=== PATIENT | male | born 1995 | race Caucasian/White ===

== ENCOUNTER 2017-03-06 16:56 | Inpatient (IN) | payer MEDICAID ==
[2017-03-06] VITALS (11 sets, daily range): BP systolic 102–112; BP diastolic 61–70; PULSE 105–140; RESP 16; TEMP 98–98.4; O2SAT 95–100
[~2017-03-06] VITALS: Ht 170.2 cm; Wt 68.0 kg
[~2017-03-06 16:56] MED LIST: ATOM60 PO
[2017-03-06] MEDS ORDERED: ceFAZolin 2 GM PREMIX 50 ML ONE (17:11)
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
[2017-03-06] MEDS ORDERED: TETANUS/DIPHTHERIA TOXOID ADULT 0.5 ML VIAL IM ONE (17:15)
[2017-03-06 17:27] LABS: AUTOMATED NEUTROPHIL # 29.8 TH/MM3 (1.8-7.7); BASOPHIL # 0.1 TH/MM3 (0-0.2); BASOPHIL % 0.2 % (0.0-2.0); EOSINOPHIL # 0.1 TH/MM3 (0-0.4); EOSINOPHIL % 0.2 % (0.0-4.0); HEMATOCRIT 36.2 % (39.0-51.0); LYMPH % 15.4 % (9.0-44.0); LYMPHOCYTE # 5.8 TH/MM3 (1.0-4.8); MEAN CELL VOLUME 87.3 FL (80.0-100.0); MEAN CORPUSCULAR HEMOGLOBIN 29.5 PG (27.0-34.0); MEAN CORPUSCULAR HGB CONC 33.8 % (32.0-36.0); MONO % 4.9 % (0.0-8.0); NEUT % 79.3 % (16.0-70.0); PLATELET COUNT 470 TH/MM3 (150-450); RED BLOOD COUNT 4.14 MIL/MM3 (4.50-5.90); RED CELL DISTRIBUTION WIDTH 12.7 % (11.6-17.2); WHITE BLOOD COUNT 37.6 TH/MM3 (4.0-11.0)
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
[2017-03-06 17:30] LABS: INTERNATIONAL NORMALIZED RATIO 1.1 RATIO; PROTHROMBIN TIME - PATIENT 12.4 SEC (9.8-11.6)
[2017-03-06 17:38] LABS: HEMO FLAGS AUTO DIFF
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
[2017-03-06] MEDS ORDERED: IOHEXOL 350 MG/ML 10 ML VIAL (for RAD DIAG) IV ONE (17:43)
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
[2017-03-06] MEDS ORDERED: SODIUM CHLOR 0.9% 1000 ML INJ 1,000 ML IV SCH (17:46)
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
[2017-03-06 17:55] LABS: I-STAT POTASSIUM 3.6 MMOL/L (3.5-4.9); I-STAT SODIUM 140 MMOL/L (138-146)
[2017-03-06] MEDS ORDERED: RESP: ALBUTEROL 2.5 MG/IPRATROPIUM 0.5 MG NEB (PRN) INH (18:00)
[2017-03-06] MEDS ORDERED: POTASSIUM PHOSPHATE MONOBASIC 500 MG TAB PO PRN (18:00)
[2017-03-06] MEDS ORDERED: MISCELLANEOUS NURSING INFORMATION XX SCH ×2 (18:00)
[2017-03-06] MEDS ORDERED: CHLORHEXIDINE GLUCONATE 2 % 1 PACK (2 CLOTHS) TOP PRN ×2 (18:00)
[2017-03-06] MEDS ORDERED: SENNOSIDES 8.6 MG TAB PO PRN (18:00)
[2017-03-06] MEDS ORDERED: SODIUM CHLORIDE 0.9% FLUSH 10 ML FLUSH IV FLUSH PRN ×2 (18:00)
[2017-03-06] MEDS ORDERED: MAGNESIUM OXIDE 400 MG TAB PO PRN (18:00)
[2017-03-06] MEDS ORDERED: POTASSIUM CHLOR 40 MEQ PREMIX 100 ML IV PRN (18:00)
[2017-03-06] MEDS ORDERED: ENALAPRILAT 1.25 MG/ML VIAL IV PRN (18:00)
[2017-03-06] MEDS ORDERED: MAGNESIUM SULFATE INJ 4 GM in SODIUM CHLORIDE 0.9% INJ 92 ML IV PRN (18:00)
[2017-03-06] MEDS ORDERED: POTASSIUM PHOSPHATE MONOBASIC 500 MG TAB PO/TUBE PRN (18:00)
[2017-03-06] MEDS ORDERED: POTASSIUM CHLOR 20 MEQ PREMIX 100 ML IV PRN (18:00)
[2017-03-06] MEDS ORDERED: POTASSIUM CHLORIDE 25 MEQ EFFERVESCENT TAB PO PRN (18:00)
[2017-03-06] MEDS ORDERED: PANTOPRAZOLE SODIUM 40 MG VIAL IVP SCH (18:00)
[2017-03-06] MEDS ORDERED: SODIUM PHOSPHATE INJ 30 MMOL in SODIUM CHLOR 0.9% 250 ML INJ 240 ML IV PRN (18:00)
[2017-03-06] MEDS ORDERED: MAGNESIUM SULFATE INJ 2 GM in SODIUM CHLORIDE 0.9% INJ 96 ML IV PRN (18:00)
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
[2017-03-06 18:10] LABS: BLOOD GAS BASE EXCESS -1.3 mmol/L (-2-2); BLOOD GAS CARBOXYHEMOGLOBIN 0.7 % (0-4); BLOOD GAS HCO3 24 mmol/L (22-26); BLOOD GAS METHEMOGLOBIN 1.2 % (0-2); BLOOD GAS O2 HGB SATURATION 98 % (90-100); BLOOD GAS OXYGEN CONTENT 16.8 Vol % (12.0-20.0); BLOOD GAS PCO2 46 mmHg (38-42); BLOOD GAS PO2 548 mmHg (61-120); BLOOD GAS TOTAL HGB 11.1 G/DL (12.0-16.0); CRITICAL VALUE NO; OXYGEN DEVICE VENTILATOR; TEMP CORR TO 98.6
[2017-03-06 18:11] LABS: DRAW SITE RT RADIAL; FIO2 100 %; NUMBER OF ARTERIAL PUNCTURES 1; STAT NO; ULNAR PULSE PRESENT; VENT SETTINGS PRVC/16/450/IT1.0/+5
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
[2017-03-06 18:31] LABS: BANDS 19 % (0-6); METAMYELOCYTES 1 % (0-1); MYELOCYTES 2 % (0-0); NEUTROPHIL # MANUAL DIFF 27.8 TH/MM3 (1.8-7.7); PLATELET ESTIMATE SMEAR HIGH (NORMAL); POLYS (SEG NEUTROPHILS) 52 % (16-70); WBC DIFF SAMPLE 100
[2017-03-06 18:32] LABS: PLATELET MORPHOLOGY NORMAL (NORMAL); SCAN/DIFF FINAL DIFF MANUAL
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
[2017-03-06 18:54] LABS: BACTERIA, URINE FEW /hpf; BLOOD, URINE MOD (NEG); GLUCOSE,URINE NEG (NEG); HYALINE CAST, URINE 18 /lpf (RARE); KETONE, URINE NEG (NEG); MUCUS URINE FEW /lpf (OCC); NITRITE,URINE NEG (NEG); PH, URINE 6.5 (5.0-8.5); SQUAMOUS EPITHELIAL CELL URINE 2 /hpf (0-5); URINE COLOR YELLOW (YELLW/STRAW)
[2017-03-06 18:55] LABS: COMMENT (UR) CATH-CULTURE IND; CULTURE IF INDICATED CATH CULTURE IND
[2017-03-06 18:58] LABS: AMPHETAMINE, URINE NEG (NEG); BARBITURATES, URINE NEG (NEG); COCAINE, URINE NEG (NEG)
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
[2017-03-06] MEDS: SODIUM CHLORIDE 23.4% INJ 188 MEQ in SODIUM CHLOR 0.9% 1000 ML INJ 1,000 ML IV SCH ×2 (20:00→21:37)
[2017-03-06] MEDS: MULTIVITAMIN INJ 10 ML, THIAMINE INJ 100 MG, FOLIC ACID INJ 1 MG in SODIUM CHLORID 0.9%... IV SCH (20:00)
[2017-03-06] MEDS: ARTIFICIAL TEARS OPTH SOLN 15 ML BTL EACH EYE SCH (20:00)
[2017-03-06] MEDS: CHLORHEXIDINE 0.12% (ORAL KIT) 15 ML CUP MT SCH (20:00)
[2017-03-06] MEDS ORDERED: LIDOCAINE 1%/EPINEPHrine 1:100,000 SOLN 50 ML VIAL ONE ×2 (20:06→20:07)
[2017-03-06] MEDS ORDERED: levETIRAcetam INJ 500 MG in SODIUM CHLORIDE 0.9% INJ 100 ML IV SCH (21:00)
[2017-03-06] MEDS: BACITRACIN TOP OINT 15 GM TUBE TOP SCH (21:00)
[2017-03-06] MEDS: SODIUM CHLORIDE 0.9% FLUSH 10 ML FLUSH IV FLUSH SCH (21:00)
[2017-03-06] MEDS: DOCUSATE SODIUM 100 MG/10 ML UDC G-TUBE SCH (21:00)
[2017-03-06] MEDS ORDERED: DOCUSATE SODIUM 100 MG CAP PO SCH (21:00)
[2017-03-06] MEDS: FAMOTIDINE 20 MG/2 ML VIAL IV PUSH SCH (21:00)
[2017-03-06] MEDS: PROPOFOL 1000 MG/100 ML INJ 100 ML IV SCH (21:07)
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
[2017-03-06] MEDS: RESP: ALBUTEROL 2.5 MG/IPRATROPIUM 0.5 MG NEB (SCH) INH (21:46)
[2017-03-06] MEDS ORDERED: TERBUTALINE INJ 1 MG/ML AMP SQ PRN (22:15)
[2017-03-06] MEDS ORDERED: PHENYLEPHRINE 40 MG/D5W 496 ML ADMIX IV SCH ×2 (22:15)
[2017-03-06] MEDS ORDERED: SODIUM CHLOR 0.9% 1000 ML INJ 1,000 ML IV ONE (22:30)
[2017-03-06 22:46] LABS: AMPHETAMINE, URINE NEG (NEG); BARBITURATES, URINE NEG (NEG); COCAINE, URINE NEG (NEG)
[2017-03-06] MEDS ORDERED: PHENYLEPHRINE INJ 40 MG in SODIUM CHLORID 0.9% 500 ML INJ 496 ML IV SCH (23:15)
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
[2017-03-07] VITALS (20 sets, daily range): BP systolic 98–155; BP diastolic 55–70; PULSE 94–138; RESP 18–20; TEMP 98–101.9; O2SAT 99–100
[2017-03-07 02:02] LABS: BLOOD GAS BASE EXCESS -0.9 mmol/L (-2-2); BLOOD GAS CARBOXYHEMOGLOBIN 0.7 % (0-4); BLOOD GAS HCO3 24 mmol/L (22-26); BLOOD GAS METHEMOGLOBIN 0.9 % (0-2); BLOOD GAS O2 HGB SATURATION 98 % (90-100); BLOOD GAS PCO2 40 mmHg (38-42); BLOOD GAS PO2 146 mmHg (61-120); BLOOD GAS TOTAL HGB 10.8 G/DL (12.0-16.0); CRITICAL VALUE NO; OXYGEN DEVICE VENTILATOR; TEMP CORR TO 98.6
[2017-03-07 02:03] LABS: DRAW SITE RT RADIAL; FIO2 40 %; NUMBER OF ARTERIAL PUNCTURES 1; STAT NO; ULNAR PULSE PRESENT
--- NOTE | 2017-03-07 03:28 | PD.PROCEDR ---
Procedure Note Procedure DX: Severe closed head injury, subarachnoid hemorrhage OP: 1. Insertion Right Radial Arterial line (41033) 2. Insertion Left Subclavian Central Venous Line (24715) Procedure: Sukumar test normal right hand. Right wrist supinated and prepped and draped. Right radial artery cannulated with 22 gauge needle and wire easily advanced. Cannula passed over wire to 3 cm. Good waveform observed. Dressing applied. Left chest prepped and draped. Cervical collar left in place. Left subclavian vein cannulated and wire easily advanced. Catheter passed over wire to 18 cm. Lumens aspirated and flushed. Dressing applied. CXR ordered, will review. Jeff Barriga MD Mar 07, 2017 03:28
[2017-03-07] MEDS ORDERED: 3% SALINE INJ 500 ML IV ONE (03:30)
[2017-03-07] MEDS: RESP: ALBUTEROL 2.5 MG/IPRATROPIUM 0.5 MG NEB (SCH) INH ×5 (03:41→22:15)
[2017-03-07] MEDS: cefTRIAXone INJ 1,000 MG in SODIUM CHLORIDE 0.9% INJ 100 ML IV SCH (03:50)
[2017-03-07] MEDS: PROPRANOLOL HCL 10 MG TAB PO SCH ×3 (03:51→14:00)
[2017-03-07] MEDS: PROPOFOL 1000 MG/100 ML INJ 100 ML IV SCH ×4 (03:51→21:24)
[2017-03-07] MEDS ORDERED: CHLORHEXIDINE GLUCONATE 2 % 1 PACK (2 CLOTHS) TOP SCH (04:00)
[2017-03-07] MEDS: CHLORHEXIDINE GLUCONATE 2 % 1 PACK (2 CLOTHS) TOP SCH (04:00)
--- NOTE | 2017-03-07 04:41 | RADRPT ---
EXAM DATE/TIME: 03/07/2017 03:44 [facility] COMPARISON: CHEST SINGLE AP, March 06, 2017, 16:51. INDICATIONS : Follow up trauma. Short of breath. MEDICAL HISTORY : None. SURGICAL HISTORY : None. ENCOUNTER: Subsequent ACUITY: 2 days PAIN SCORE: Non-responsive. LOCATION: Bilateral chest FINDINGS: The support devices are in place. There is no pneumothorax. There is a new infiltrate in the right pe rihilar area suggestive of atelectasis. Heart size is within normal limits. There are no pleural effu sions. The bony structures are stable. CONCLUSION: 1. No evidence of pneumothorax. 2. New right perihilar infiltrate suggestive of atelectasis. Gomez Ramirez MD on March 07, 2017 at 4:39 Board Certified Radiologist. This report was verified electronically.
[2017-03-07 05:08] LABS: BLOOD GAS BASE EXCESS -1.6 mmol/L (-2-2); BLOOD GAS CARBOXYHEMOGLOBIN 0.7 % (0-4); BLOOD GAS HCO3 22 mmol/L (22-26); BLOOD GAS O2 HGB SATURATION 98 % (90-100); BLOOD GAS OXYGEN CONTENT 13.7 Vol % (12.0-20.0); BLOOD GAS PCO2 33 mmHg (38-42); BLOOD GAS PO2 165 mmHg (61-120); BLOOD GAS TOTAL HGB 9.7 G/DL (12.0-16.0); CRITICAL VALUE NO; OXYGEN DEVICE VENTILATOR; TEMP CORR TO 98.6
[2017-03-07 05:09] LABS: DRAW SITE ART LINE; FIO2 40 %; STAT NO
[2017-03-07 05:41] LABS: HEMATOCRIT 28.3 % (39.0-51.0); MEAN CELL VOLUME 86.2 FL (80.0-100.0); MEAN CORPUSCULAR HEMOGLOBIN 29.9 PG (27.0-34.0); MEAN CORPUSCULAR HGB CONC 34.6 % (32.0-36.0); PLATELET COUNT 371 TH/MM3 (150-450); RED BLOOD COUNT 3.29 MIL/MM3 (4.50-5.90); RED CELL DISTRIBUTION WIDTH 12.5 % (11.6-17.2); REVIEW FLAG FINAL
[2017-03-07] MEDS ORDERED: ACETAMINOPHEN 1000 MG/100 ML VIAL IV ONE (05:45)
[2017-03-07 06:16] LABS: BICARBONATE 23.3 MEQ/L (21.0-32.0); POTASSIUM 4.4 MEQ/L (3.5-5.1)
[2017-03-07 06:30] LABS: CALCIUM-PROTEIN CORRECTED 8.3 MG/DL (8.5-10.1)
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
[2017-03-07] MEDS: ARTIFICIAL TEARS OPTH SOLN 15 ML BTL EACH EYE SCH ×3 (08:28→16:47)
[2017-03-07] MEDS: CHLORHEXIDINE 0.12% (ORAL KIT) 15 ML CUP MT SCH ×2 (08:28→20:00)
[2017-03-07] MEDS: BACITRACIN TOP OINT 15 GM TUBE TOP SCH ×2 (08:29→20:14)
[2017-03-07] MEDS: SODIUM CHLORIDE 0.9% FLUSH 10 ML FLUSH IV FLUSH SCH ×2 (08:29→20:13)
[2017-03-07] MEDS: DOCUSATE SODIUM 100 MG/10 ML UDC G-TUBE SCH ×2 (08:29→20:13)
[2017-03-07] MEDS: LACTULOSE SYRUP 20 GM/30 ML CUP PO SCH (08:29)
[2017-03-07] MEDS: FAMOTIDINE 20 MG/2 ML VIAL IV PUSH SCH ×2 (08:53→20:13)
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
[2017-03-07] MEDS: fentaNYL DRIP 250 ML IV SCH (10:23)
[2017-03-07] MEDS: levETIRAcetam INJ 500 MG in SODIUM CHLORIDE 0.9% INJ 100 ML IV SCH ×2 (10:23→20:13)
[2017-03-07] MEDS ORDERED: IOHEXOL 350 MG/ML 50 ML BTL (for RAD DIAG) IV ONE (11:21)
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
--- NOTE | 2017-03-07 11:46 | RADRPT ---
EXAM DATE/TIME: 03/07/2017 11:05 [facility] COMPARISON: No previous studies available for comparison. INDICATIONS : Follow up traumatic brain injury IV CONTRAST: 70 cc Omnipaque 350 (iohexol) IV RADIATION DOSE: 18.85 CTDIvol (mGy) MEDICAL HISTORY : Non-responsive. SURGICAL HISTORY : Non-responsive. ENCOUNTER: Subsequent ACUITY: 1 day PAIN SCALE: Non-responsive LOCATION: Bilateral cranial TECHNIQUE: Volumetric scanning was performed using a multi-row detector CT scanner. The data was post processed with a variety of visualization algorithms including full volume maximum intensity projection, multi -planar sliding thin slab reformation, curved planar reformation, and surface rendering techniques. Using automated exposure control and adjustment of the mA and/or kV according to patient size, radiat ion dose was kept as low as reasonably achievable to obtain optimal diagnostic quality images. FINDINGS: There is excellent visualization of the major intracranial arteries out to the second-order branch ve ssels. There is no evidence for aneurysm, vessel truncation or stenosis, and no evidence for vascula r malformation. Anatomic variant of the [place]. The right posterior communicating artery is diminutive but patent. 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 CONCLUSION: 1. Anatomic alignment of the [place] as above. Patient is right vertebral dominant. 2. Otherwise, intracranial vessels are patent without aneurysmal disease Reji Og MD on March 07, 2017 at 11:42 Board Certified Radiologist. This report was verified electronically.
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
[2017-03-07] MEDS ORDERED: DEXTROSE 50% IN WATER 50 ML VIAL(D50) IV PUSH PRN (15:45)
[2017-03-07] MEDS ORDERED: GLUCAGON 1 MG/ML VIAL OTHER PRN (15:45)
[2017-03-07] MEDS: INSULIN ASPART SUPPLEMENTAL SCALE SQ SCH ×2 (16:00→21:00)
[2017-03-07] MEDS: MULTIVITAMIN INJ 10 ML, THIAMINE INJ 100 MG, FOLIC ACID INJ 1 MG in SODIUM CHLORID 0.9%... IV SCH (20:13)
[2017-03-08] VITALS (22 sets, daily range): BP systolic 134–164; BP diastolic 50–73; PULSE 93–111; RESP 16–20; TEMP 98.4–99.7; O2SAT 98–100
[2017-03-08] MEDS: PROPOFOL 1000 MG/100 ML INJ 100 ML IV SCH ×4 (02:49→20:15)
[2017-03-08] MEDS: RESP: ALBUTEROL 2.5 MG/IPRATROPIUM 0.5 MG NEB (SCH) INH ×4 (02:56→21:01)
[2017-03-08] MEDS: cefTRIAXone INJ 1,000 MG in SODIUM CHLORIDE 0.9% INJ 100 ML IV SCH (03:25)
[2017-03-08] MEDS: CHLORHEXIDINE GLUCONATE 2 % 1 PACK (2 CLOTHS) TOP SCH (04:00)
--- NOTE | 2017-03-08 04:46 | RADRPT ---
EXAM DATE/TIME: 03/08/2017 03:32 [place] COMPARISON: CHEST SINGLE AP, March 07, 2017, 3:44. INDICATIONS : Shortness of breath. MEDICAL HISTORY : None. SURGICAL HISTORY : None. ENCOUNTER: Subsequent ACUITY: 3 days PAIN SCORE: Non-responsive. LOCATION: Bilateral chest FINDINGS: Mild streaky infiltrate right base with small pleural effusion not significantly changed. Left lung c lear. No pneumothorax. Heart size stable, normal. Endotracheal tube tip is about 4 cm above the pearl. Nasogastric tube courses into the stomach. Ther e is a left subclavian central venous catheter with tip the atriocaval junction. CONCLUSION: No significant change. Reji Navarrete MD on March 08, 2017 at 4:44 Board Certified Radiologist. This report was verified electronically.
[2017-03-08 05:28] LABS: AUTOMATED NEUTROPHIL # 7.7 TH/MM3 (1.8-7.7); BASOPHIL % 0.2 % (0.0-2.0); EOSINOPHIL # 0.1 TH/MM3 (0-0.4); EOSINOPHIL % 0.7 % (0.0-4.0); HEMATOCRIT 21.4 % (39.0-51.0); HEMO FLAGS DIFF FINAL; LYMPH % 14.4 % (9.0-44.0); LYMPHOCYTE # 1.5 TH/MM3 (1.0-4.8); MEAN CELL VOLUME 86.1 FL (80.0-100.0); MEAN CORPUSCULAR HEMOGLOBIN 29.4 PG (27.0-34.0); MEAN CORPUSCULAR HGB CONC 34.2 % (32.0-36.0); MONO % 9.7 % (0.0-8.0); PLATELET COUNT 228 TH/MM3 (150-450); RED BLOOD COUNT 2.49 MIL/MM3 (4.50-5.90); RED CELL DISTRIBUTION WIDTH 12.5 % (11.6-17.2); WHITE BLOOD COUNT 10.3 TH/MM3 (4.0-11.0)
[2017-03-08 05:51] LABS: SODIUM (NA) 147 MEQ/L (136-145)
[2017-03-08] MEDS: INSULIN ASPART SUPPLEMENTAL SCALE SQ SCH ×4 (07:00→21:00)
[2017-03-08 07:10] LABS: ALKALINE PHOSPHATASE 43 U/L (45-117); AST (GOT) 61 U/L (15-39); BLOOD UREA NITROGEN 13 MG/DL (7-18); GLOMERULAR FILTRATION RATE 144 ML/MIN (>89); TOTAL BILIRUBIN ADULT 0.2 MG/DL (0.2-1.0)
[2017-03-08 07:25] LABS: ALT (GPT) 98 U/L (9-52); CHLORIDE 116 MEQ/L (98-107); POTASSIUM 3.8 MEQ/L (3.5-5.1)
[2017-03-08] MEDS: CHLORHEXIDINE 0.12% (ORAL KIT) 15 ML CUP MT SCH ×2 (07:28→20:00)
[2017-03-08] MEDS: SODIUM CHLORIDE 0.9% FLUSH 10 ML FLUSH IV FLUSH SCH ×2 (07:28→21:00)
[2017-03-08] MEDS: BACITRACIN TOP OINT 15 GM TUBE TOP SCH ×2 (07:28→21:00)
[2017-03-08] MEDS: ARTIFICIAL TEARS OPTH SOLN 15 ML BTL EACH EYE SCH ×3 (07:28→17:59)
[2017-03-08 07:44] LABS: ANION GAP 7 MEQ/L (5-15); BICARBONATE 23.7 MEQ/L (21.0-32.0)
[2017-03-08] MEDS: LACTULOSE SYRUP 20 GM/30 ML CUP PO SCH (08:28)
[2017-03-08] MEDS: DOCUSATE SODIUM 100 MG/10 ML UDC G-TUBE SCH ×2 (08:28→20:15)
[2017-03-08] MEDS: FAMOTIDINE 20 MG/2 ML VIAL IV PUSH SCH ×2 (08:29→20:16)
[2017-03-08] MEDS: levETIRAcetam INJ 500 MG in SODIUM CHLORIDE 0.9% INJ 100 ML IV SCH ×2 (08:29→20:15)
[2017-03-08] MEDS ORDERED: SODIUM CHLOR 0.9% 250 ML INJ 250 ML IV ONE (09:30)
--- NOTE | 2017-03-08 10:08 | HHI.PR ---
Neuropsych Emotional Emotional: UnabletoAssess: Emotional, Anxious/Fearful, Depressed/Sad, Hostile/ Resentful, Irritable/Angry/Frustrate, Labile, Constricted/Blunted Behavior Behavior: Unable to Asses: Behavior, Coping/Acceptance, Cooperative w/ Treatment, Motivation, Frustration Tolerance/[place], Impulsive/Agitated, Suicidal/ Homicidal Risk Cognitive Cognitive: Unable to Asses: Cognitive, Attention/Concentration, Confused/ Orientation, Insight/Awareness Progress Notes/Response to Tx Contents of Sessions: Level of Consciousness Time with Patient: 15 minutes Premorbid psychological status Premorbid Cognitive, Emotional and Behavioral Status: Unstable. The patient has an unknown number of years of education and no real work history prior to this injury. The patient has prior psychiatric difficulties, including reportedly bipolar disorder (reported by grandmother to staff but not independently corroborated). Substance abuse history includes polysubstance dependence, in controlled environment. Behavioral Reactions of Patient and Family/Support System: Tenuous. The patient apparently lives with his grandmother. The patients family is experiencing ongoing issues of adjustment given the nature of the injury, and this aspect of recovery will require ongoing monitoring. Emotional/Behavioral Status of Patient and Family/Support System: Unstable. Pertinent issues, if appropriate to this patients clinical care, are described in detail above. Maximizing acute care outcome It is recommended that the patient be monitored for emergent behavioral impulsivity as the medical condition evolves. This patients neuropathological challenges may limit their rehabilitation potential going forward, and these challenges will require specialized therapeutic skills to maximize outcome. Additionally, the patients family is experiencing ongoing issues of adjustment given the traumatic nature of the injury, and they will benefit from ongoing psychological assistance. Anticipated Problems Ongoing areas of concern will include behavioral impulsivity, lack of insight and judgment, which is expected to improve with time and treatment. Treatment Plan This clinician will continue to follow with you throughout the course of this patients acute care treatment, and I will be available to meet with the patient s family/support system to facilitate their understanding and the ongoing care of their family member. The goals of neuropsychological intervention shall be both educational and supportive to the family/support system as is deemed clinically appropriate. [facility] Level: I:No response-total assistance Impression Young man with severe traumatic brain injury superimposed on underlying history of polysubstance dependence. Diagnosis: (1) Major neurocognitive disorder as late effect of traumatic brain injury with behavioral disturbance Status: Acute (2) Polysubstance dependence in controlled environment Status: Acute Progress Note Narrative Ongoing follow-up of patient seen during daily trauma rounds. This is day 3 post injury. The patient remains intubated and sedated. Repeat head CT was significant for extensive intraventricular and parenchymal hemorrhage bilaterally. Trauma team consensus is that he will need a trach and will likely require LTAC placement. On sedation vacations, he moves x 4, but in general he is a GCS of 3, [place]. I will continue to follow. Miguel Madrid PhD Mar 08, 2017 10:08 am
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
[2017-03-08] MEDS: 3% SALINE INJ 500 ML IV SCH (13:22)
[2017-03-08] MEDS: fentaNYL DRIP 250 ML IV SCH (13:22)
[2017-03-08 13:44] LABS: BLOOD GAS BASE EXCESS -0.6 mmol/L (-2-2); BLOOD GAS CARBOXYHEMOGLOBIN 0.9 % (0-4); BLOOD GAS HCO3 23 mmol/L (22-26); BLOOD GAS METHEMOGLOBIN 0.8 % (0-2); BLOOD GAS O2 HGB SATURATION 98 % (90-100); BLOOD GAS OXYGEN CONTENT 12.6 Vol % (12.0-20.0); BLOOD GAS PCO2 32 mmHg (38-42); BLOOD GAS PO2 181 mmHg (61-120); BLOOD GAS TOTAL HGB 8.9 G/DL (12.0-16.0); TEMP CORR TO 98.6
[2017-03-08 13:45] LABS: CRITICAL VALUE NO; OXYGEN DEVICE VENTILATOR
[2017-03-08 13:46] LABS: DRAW SITE ART LINE; FIO2 35 %
[2017-03-08 13:47] LABS: STAT YES
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
[2017-03-08] MEDS: MULTIVITAMIN INJ 10 ML, THIAMINE INJ 100 MG, FOLIC ACID INJ 1 MG in SODIUM CHLORID 0.9%... IV SCH (20:18)
[2017-03-08] MEDS: MAGNESIUM HYDROXIDE SUSP 30 ML CUP PO SCH (21:00)
[2017-03-09] VITALS (20 sets, daily range): BP systolic 129–153; BP diastolic 50–60; PULSE 91–107; RESP 16–22; TEMP 99–101.7; O2SAT 98–100
[2017-03-09] MEDS: PROPOFOL 1000 MG/100 ML INJ 100 ML IV SCH ×5 (03:30→18:25)
[2017-03-09] MEDS: RESP: ALBUTEROL 2.5 MG/IPRATROPIUM 0.5 MG NEB (SCH) INH ×4 (03:52→20:16)
[2017-03-09] MEDS: CHLORHEXIDINE GLUCONATE 2 % 1 PACK (2 CLOTHS) TOP SCH (04:00)
[2017-03-09] MEDS: cefTRIAXone INJ 1,000 MG in SODIUM CHLORIDE 0.9% INJ 100 ML IV SCH (05:04)
[2017-03-09] MEDS: fentaNYL DRIP 250 ML IV SCH ×2 (05:05→13:07)
[2017-03-09 05:27] LABS: BASOPHIL % 0.2 % (0.0-2.0); EOSINOPHIL # 0.3 TH/MM3 (0-0.4); EOSINOPHIL % 2.5 % (0.0-4.0); HEMO FLAGS DIFF FINAL; LYMPHOCYTE # 1.3 TH/MM3 (1.0-4.8); MEAN CORPUSCULAR HEMOGLOBIN 29.2 PG (27.0-34.0); MONO % 6.8 % (0.0-8.0); NEUT % 77.5 % (16.0-70.0); PLATELET COUNT 193 TH/MM3 (150-450); RED BLOOD COUNT 2.44 MIL/MM3 (4.50-5.90); RED CELL DISTRIBUTION WIDTH 13.3 % (11.6-17.2); WHITE BLOOD COUNT 10.3 TH/MM3 (4.0-11.0)
[2017-03-09 05:51] LABS: BICARBONATE 25.7 MEQ/L (21.0-32.0); MAGNESIUM 2.1 MG/DL (1.5-2.5); POTASSIUM 3.6 MEQ/L (3.5-5.1)
--- NOTE | 2017-03-09 06:57 | RADRPT ---
EXAM DATE/TIME: 03/09/2017 05:32 [facility] COMPARISON: CHEST SINGLE AP, March 08, 2017, 3:32. INDICATIONS : Shortness of breath. MEDICAL HISTORY : None. SURGICAL HISTORY : None. ENCOUNTER: Subsequent ACUITY: 4 - 6 days PAIN SCORE: Non-responsive. LOCATION: Bilateral chest FINDINGS: There is mild atelectasis/infiltrate in the right mid lung, unchanged. Left lung remains clear. No la rge effusion. No pneumothorax. Cardiomediastinal silhouette normal. Endotracheal tube tip is at the level of thoracic inlet. Nasogastric tube coiled in the stomach. Left subclavian central venous catheter with tip in the superior vena cava unchanged. CONCLUSION: No change. Mild right midlung consolidation persists. Reji Navarrete MD on March 09, 2017 at 6:55 Board Certified Radiologist. This report was verified electronically.
[2017-03-09] MEDS: INSULIN ASPART SUPPLEMENTAL SCALE SQ SCH ×4 (07:00→21:00)
[2017-03-09] MEDS: SODIUM CHLORIDE 0.9% FLUSH 10 ML FLUSH IV FLUSH SCH ×2 (08:34→21:17)
[2017-03-09] MEDS: ARTIFICIAL TEARS OPTH SOLN 15 ML BTL EACH EYE SCH ×3 (08:34→17:32)
[2017-03-09] MEDS: CHLORHEXIDINE 0.12% (ORAL KIT) 15 ML CUP MT SCH ×2 (08:34→21:07)
[2017-03-09] MEDS: BACITRACIN TOP OINT 15 GM TUBE TOP SCH ×2 (08:35→21:14)
[2017-03-09] MEDS: DOCUSATE SODIUM 100 MG/10 ML UDC G-TUBE SCH ×2 (09:48→21:08)
[2017-03-09] MEDS: FAMOTIDINE 20 MG/2 ML VIAL IV PUSH SCH ×2 (09:48→21:11)
[2017-03-09] MEDS: LACTULOSE SYRUP 20 GM/30 ML CUP PO SCH (09:48)
[2017-03-09] MEDS: levETIRAcetam INJ 500 MG in SODIUM CHLORIDE 0.9% INJ 100 ML IV SCH ×2 (09:49→21:09)
[2017-03-09 11:16] LABS: HEMATOCRIT 21.3 % (39.0-51.0); REVIEW FLAG FINAL
[2017-03-09] MEDS ORDERED: SODIUM CHLOR 0.9% 250 ML INJ 250 ML IV ONE (11:45)
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
[2017-03-09] MEDS: 3% SALINE INJ 500 ML IV SCH (13:07)
[2017-03-09] MEDS: METOCLOPRAMIDE HCL 10 MG/2 ML VIAL IV SCH ×2 (13:36→21:12)
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
[2017-03-09 17:20] LABS: HEMATOCRIT 23.8 % (39.0-51.0); REVIEW FLAG FINAL
[2017-03-09] MEDS: SENNOSIDES 8.6 MG TAB PO SCH (17:31)
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
[2017-03-09] MEDS: MAGNESIUM HYDROXIDE SUSP 30 ML CUP PO SCH (21:17)
[2017-03-09] MEDS: ACETAMINOPHEN 325 MG TAB PO PRN (21:46)
[2017-03-10] VITALS (18 sets, daily range): BP systolic 116–161; BP diastolic 51–68; PULSE 91–115; RESP 22–24; TEMP 99.7–101.3; O2SAT 93–100
[2017-03-10] MEDS: PROPOFOL 1000 MG/100 ML INJ 100 ML IV SCH ×4 (01:18→13:10)
[2017-03-10] MEDS ORDERED: Vancomycin Consult Pharmacy 1 EA OTHER SCH (01:30)
[2017-03-10] MEDS ORDERED: ACETAMINOPHEN 1000 MG/100 ML VIAL IV ONE (01:30)
[2017-03-10] MEDS: CEFEPIME INJ 2,000 MG in SODIUM CHLORIDE 0.9% INJ 100 ML IV SCH ×2 (02:43→15:32)
[2017-03-10] MEDS ORDERED: VANCOMYCIN INJ 1,500 MG in SODIUM CHLORID 0.9% 500 ML INJ 500 ML IV ONE (03:00)
[2017-03-10] MEDS: fentaNYL DRIP 250 ML IV SCH ×2 (03:17→16:52)
[2017-03-10] MEDS: RESP: ALBUTEROL 2.5 MG/IPRATROPIUM 0.5 MG NEB (SCH) INH ×4 (03:59→20:17)
[2017-03-10] MEDS: CHLORHEXIDINE GLUCONATE 2 % 1 PACK (2 CLOTHS) TOP SCH (04:00)
[2017-03-10 04:20] LABS: AUTOMATED NEUTROPHIL # 12.4 TH/MM3 (1.8-7.7); BASOPHIL % 0.3 % (0.0-2.0); EOSINOPHIL # 0.2 TH/MM3 (0-0.4); EOSINOPHIL % 1.3 % (0.0-4.0); HEMATOCRIT 24.1 % (39.0-51.0); HEMO FLAGS DIFF FINAL; LYMPH % 5.4 % (9.0-44.0); LYMPHOCYTE # 0.8 TH/MM3 (1.0-4.8); MEAN CELL VOLUME 81.6 FL (80.0-100.0); MEAN CORPUSCULAR HGB CONC 33.1 % (32.0-36.0); MONO % 4.9 % (0.0-8.0); NEUT % 88.1 % (16.0-70.0); PLATELET COUNT 239 TH/MM3 (150-450); RED BLOOD COUNT 2.96 MIL/MM3 (4.50-5.90); RED CELL DISTRIBUTION WIDTH 18.2 % (11.6-17.2); WHITE BLOOD COUNT 14.1 TH/MM3 (4.0-11.0)
[2017-03-10 04:46] LABS: ALT (GPT) 45 U/L (9-52); ANION GAP 7 MEQ/L (5-15); AST (GOT) 23 U/L (15-39); BICARBONATE 25.3 MEQ/L (21.0-32.0); BLOOD UREA NITROGEN 6 MG/DL (7-18); CHLORIDE 118 MEQ/L (98-107); GLOMERULAR FILTRATION RATE 212 ML/MIN (>89); MAGNESIUM 1.9 MG/DL (1.5-2.5); SODIUM (NA) 150 MEQ/L (136-145)
[2017-03-10 04:50] LABS: TOTAL BILIRUBIN ADULT 0.9 MG/DL (0.2-1.0)
[2017-03-10 04:52] LABS: ALKALINE PHOSPHATASE 46 U/L (45-117)
[2017-03-10] MEDS: cefTRIAXone INJ 1,000 MG in SODIUM CHLORIDE 0.9% INJ 100 ML IV SCH (04:59)
[2017-03-10 05:12] LABS: BLOOD GAS BASE EXCESS -0.5 mmol/L (-2-2); BLOOD GAS CARBOXYHEMOGLOBIN 1.2 % (0-4); BLOOD GAS HCO3 23 mmol/L (22-26); BLOOD GAS METHEMOGLOBIN 0.9 % (0-2); BLOOD GAS O2 HGB SATURATION 93 % (90-100); BLOOD GAS PCO2 36 mmHg (38-42); BLOOD GAS PO2 72 mmHg (61-120); BLOOD GAS TOTAL HGB 8.4 G/DL (12.0-16.0); CRITICAL VALUE NO; OXYGEN DEVICE VENTILATOR; TEMP CORR TO 98.6
[2017-03-10 05:13] LABS: DRAW SITE ALINE; FIO2 35 %; STAT NO; ULNAR PULSE PRESENT; VENT SETTINGS PRVC22/500/0.9/+5
--- NOTE | 2017-03-10 06:41 | RADRPT ---
EXAM DATE/TIME: 03/10/2017 05:30 [place] COMPARISON: No previous studies available for comparison. INDICATIONS : Follow up trauma. Respiratory status. MEDICAL HISTORY : None. SURGICAL HISTORY : Craniotomy. ENCOUNTER: Subsequent ACUITY: 4 - 6 days PAIN SCORE: Non-responsive. LOCATION: Bilateral chest FINDINGS: Right mid lung consolidation slightly worse. There is developing consolidation and probable small ple ural effusion at the left lung base. No pneumothorax seen. Heart size stable, normal. Endotracheal tube tip is approximately 5 cm above the pearl. There is a nasogastric tube coiled in t he stomach. Left subclavian central venous catheter unchanged, tip in the superior vena cava. CONCLUSION: Worsening right midlung consolidation and developing left base consolidation. Reji Navarrete MD on March 10, 2017 at 6:39 Board Certified Radiologist. This report was verified electronically.
[2017-03-10] MEDS: METOCLOPRAMIDE HCL 10 MG/2 ML VIAL IV SCH ×3 (07:00→20:29)
[2017-03-10] MEDS: SENNOSIDES 8.6 MG TAB PO SCH ×2 (07:00→16:53)
[2017-03-10] MEDS: INSULIN ASPART SUPPLEMENTAL SCALE SQ SCH ×4 (07:00→21:00)
[2017-03-10] MEDS ORDERED: BISACODYL 10 MG SUPP RECTAL ONE (07:15)
[2017-03-10] MEDS: LACTULOSE SYRUP 20 GM/30 ML CUP PO SCH (09:56)
[2017-03-10] MEDS: FAMOTIDINE 20 MG/2 ML VIAL IV PUSH SCH ×2 (09:56→20:29)
[2017-03-10] MEDS: DOCUSATE SODIUM 100 MG/10 ML UDC G-TUBE SCH ×2 (09:56→20:29)
[2017-03-10] MEDS: ARTIFICIAL TEARS OPTH SOLN 15 ML BTL EACH EYE SCH ×3 (09:57→16:54)
[2017-03-10] MEDS: SODIUM CHLORIDE 0.9% FLUSH 10 ML FLUSH IV FLUSH SCH ×2 (09:57→20:29)
[2017-03-10] MEDS: CHLORHEXIDINE 0.12% (ORAL KIT) 15 ML CUP MT SCH ×2 (09:57→20:00)
[2017-03-10] MEDS: levETIRAcetam INJ 500 MG in SODIUM CHLORIDE 0.9% INJ 100 ML IV SCH ×2 (09:58→20:29)
[2017-03-10] MEDS: BACITRACIN TOP OINT 15 GM TUBE TOP SCH ×2 (09:58→20:29)
[2017-03-10] MEDS: ACETAMINOPHEN 325 MG TAB PO PRN ×2 (10:47→16:53)
[2017-03-10] MEDS: METOPROLOL TARTRATE 5 MG/5 ML VIAL IV PUSH SCH ×3 (11:57→23:00)
[2017-03-10] MEDS: VANCOMYCIN INJ 1,250 MG in SODIUM CHLOR 0.9% 250 ML INJ 250 ML IV SCH ×2 (13:10→20:29)
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
[2017-03-10] MEDS: LEVOFLOXACIN 500 MG PREMIX INJ 100 ML IV SCH (16:52)
[2017-03-10] MEDS: 3% SALINE INJ 500 ML IV SCH (16:54)
[2017-03-10] MEDS ORDERED: ATROPINE SULFATE 1 MG/10 ML SYRINGE ONE (20:20)
[2017-03-10] MEDS: MAGNESIUM HYDROXIDE SUSP 30 ML CUP PO SCH (20:29)
[2017-03-10] MEDS: ENALAPRILAT 1.25 MG/ML VIAL IV PRN (22:08)
[2017-03-11] VITALS (19 sets, daily range): BP systolic 133–177; BP diastolic 59–81; PULSE 85–110; RESP 20–24; TEMP 99.4–101.7; O2SAT 98–100
[2017-03-11] MEDS: PROPOFOL 1000 MG/100 ML INJ 100 ML IV SCH ×3 (01:43→19:01)
[2017-03-11] MEDS: CEFEPIME INJ 2,000 MG in SODIUM CHLORIDE 0.9% INJ 100 ML IV SCH ×2 (01:43→12:51)
[2017-03-11] MEDS: CHLORHEXIDINE GLUCONATE 2 % 1 PACK (2 CLOTHS) TOP SCH (03:45)
[2017-03-11 04:08] LABS: BASOPHIL % 0.2 % (0.0-2.0); EOSINOPHIL # 0.2 TH/MM3 (0-0.4); EOSINOPHIL % 0.7 % (0.0-4.0); HEMATOCRIT 25.3 % (39.0-51.0); HEMO FLAGS DIFF FINAL; LYMPH % 5.9 % (9.0-44.0); LYMPHOCYTE # 1.2 TH/MM3 (1.0-4.8); MEAN CELL VOLUME 82.3 FL (80.0-100.0); MEAN CORPUSCULAR HEMOGLOBIN 26.9 PG (27.0-34.0); MEAN CORPUSCULAR HGB CONC 32.6 % (32.0-36.0); MONO % 5.8 % (0.0-8.0); NEUT % 87.4 % (16.0-70.0); PLATELET COUNT 288 TH/MM3 (150-450); RED BLOOD COUNT 3.07 MIL/MM3 (4.50-5.90); RED CELL DISTRIBUTION WIDTH 17.4 % (11.6-17.2); WHITE BLOOD COUNT 20.6 TH/MM3 (4.0-11.0)
[2017-03-11] MEDS: VANCOMYCIN INJ 1,250 MG in SODIUM CHLOR 0.9% 250 ML INJ 250 ML IV SCH ×2 (04:10→11:36)
--- NOTE | 2017-03-11 04:17 | RADRPT ---
EXAM DATE/TIME: 03/11/2017 02:39 [facility] COMPARISON: CHEST SINGLE AP, March 10, 2017, 5:30. INDICATIONS : Shortness of breath, possible pulmonary disease. MEDICAL HISTORY : None. SURGICAL HISTORY : Craniotomy. ENCOUNTER: Subsequent ACUITY: 4 - 6 days PAIN SCORE: Non-responsive. LOCATION: Bilateral chest FINDINGS: The cardiac silhouette is normal in transverse diameter. There is improving left lower lobe atelectas is. The right lung is free of acute parenchymal opacity. No pleural effusions are identified. Support lines and tubes are in satisfactory position. CONCLUSION: 1. Resolving left basilar atelectasis versus pneumonia Cruz Santos MD on March 11, 2017 at 4:15 Board Certified Radiologist. This report was verified electronically.
[2017-03-11 04:25] LABS: ANION GAP 7 MEQ/L (5-15); AST (GOT) 23 U/L (15-39); BICARBONATE 25.2 MEQ/L (21.0-32.0); BLOOD UREA NITROGEN 8 MG/DL (7-18); CHLORIDE 114 MEQ/L (98-107); GLOMERULAR FILTRATION RATE 246 ML/MIN (>89); MAGNESIUM 2.1 MG/DL (1.5-2.5); POTASSIUM 3.5 MEQ/L (3.5-5.1); SODIUM (NA) 146 MEQ/L (136-145)
[2017-03-11 04:39] LABS: ALKALINE PHOSPHATASE 55 U/L (45-117); ALT (GPT) 39 U/L (9-52); TOTAL BILIRUBIN ADULT 0.8 MG/DL (0.2-1.0)
[2017-03-11] MEDS ORDERED: PHARMACY ORDERED LAB ONE (04:45)
[2017-03-11] MEDS: POTASSIUM CHLOR 40 MEQ PREMIX 100 ML IV PRN (04:55)
[2017-03-11] MEDS: SENNOSIDES 8.6 MG TAB PO SCH ×2 (04:55→16:21)
[2017-03-11] MEDS: METOCLOPRAMIDE HCL 10 MG/2 ML VIAL IV SCH ×3 (04:56→20:52)
[2017-03-11] MEDS: INSULIN ASPART SUPPLEMENTAL SCALE SQ SCH ×4 (04:56→21:00)
[2017-03-11 05:26] LABS: BLOOD GAS BASE EXCESS -0.6 mmol/L (-2-2); BLOOD GAS CARBOXYHEMOGLOBIN 1.2 % (0-4); BLOOD GAS HCO3 22 mmol/L (22-26); BLOOD GAS O2 HGB SATURATION 97 % (90-100); BLOOD GAS OXYGEN CONTENT 12.6 Vol % (12.0-20.0); BLOOD GAS PCO2 30 mmHg (38-42); BLOOD GAS PO2 171 mmHg (61-120); BLOOD GAS TOTAL HGB 8.9 G/DL (12.0-16.0); CRITICAL VALUE NO; OXYGEN DEVICE VENTILATOR; TEMP CORR TO 98.6
[2017-03-11 05:27] LABS: DRAW SITE ART LINE; FIO2 45 %; STAT NO; VENT SETTINGS PRVC/AC
[2017-03-11] MEDS: METOPROLOL TARTRATE 5 MG/5 ML VIAL IV PUSH SCH ×3 (06:36→16:21)
[2017-03-11] MEDS: ARTIFICIAL TEARS OPTH SOLN 15 ML BTL EACH EYE SCH ×3 (08:07→16:20)
[2017-03-11] MEDS: CHLORHEXIDINE 0.12% (ORAL KIT) 15 ML CUP MT SCH ×2 (08:08→20:50)
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
[2017-03-11] MEDS: DOCUSATE SODIUM 100 MG/10 ML UDC G-TUBE SCH ×2 (08:22→20:51)
[2017-03-11] MEDS: SODIUM CHLORIDE 0.9% FLUSH 10 ML FLUSH IV FLUSH SCH ×2 (08:22→20:52)
[2017-03-11] MEDS: FLUCONAZOLE 400 MG PREMIX BAG 200 ML IV SCH (08:25)
[2017-03-11] MEDS: LACTULOSE SYRUP 20 GM/30 ML CUP PO SCH (08:25)
[2017-03-11] MEDS: FAMOTIDINE 20 MG/2 ML VIAL IV PUSH SCH ×2 (08:26→20:52)
[2017-03-11] MEDS: levETIRAcetam INJ 500 MG in SODIUM CHLORIDE 0.9% INJ 100 ML IV SCH ×2 (08:26→20:51)
[2017-03-11] MEDS: BACITRACIN TOP OINT 15 GM TUBE TOP SCH ×2 (08:26→20:53)
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
[2017-03-11 11:56] LABS: BLOOD GAS BASE EXCESS 0.5 mmol/L (-2-2); BLOOD GAS CARBOXYHEMOGLOBIN 1.3 % (0-4); BLOOD GAS HCO3 24 mmol/L (22-26); BLOOD GAS METHEMOGLOBIN 0.8 % (0-2); BLOOD GAS O2 HGB SATURATION 97 % (90-100); BLOOD GAS PCO2 37 mmHg (38-42); BLOOD GAS PO2 170 mmHg (61-120); BLOOD GAS TOTAL HGB 8.5 G/DL (12.0-16.0); CRITICAL VALUE NO; OXYGEN DEVICE VENTILATOR; TEMP CORR TO 98.6
[2017-03-11 11:57] LABS: DRAW SITE ART LINE; FIO2 40 %; STAT NO
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
[2017-03-11] MEDS: ENALAPRILAT 1.25 MG/ML VIAL IV PRN (12:53)
[2017-03-11] MEDS: ACETAMINOPHEN 325 MG TAB PO PRN (14:06)
[2017-03-11] MEDS: LEVOFLOXACIN 500 MG PREMIX INJ 100 ML IV SCH (15:49)
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
[2017-03-11] MEDS ORDERED: LIDOCAINE 1%/EPINEPHrine 1:100,000 SOLN 50 ML VIAL ONE (16:07)
--- NOTE | 2017-03-11 17:21 | PD.OP ---
[id number] Operative Report Date of Surgery: March 11, 2017 Preoperative Diagnosis: Cervical C2 type I and type II displaced odontoid fracture; thoracic T3, T4 and T5 vertebral body fractures Postoperative Diagnosis: Same Procedure: Closed reduction with manipulation of the C2 odontoid fracture; closed treatment of thoracic vertebral body fracture; HALO placement Anesthesia: Local with sedation Surgeon: Balaji Dumont M.D. Scaffolding Helper(s): None Operation and Findings: Informed consent was obtained from the patient's grandmother and sister witnessed by the nurses. Procedure undertaken at the bedside in the surgical intensive care unit with oxygen saturation and hemodynamic monitoring. Patient was already intubated on ventilator support and propofol and fentanyl drips. Neck was maintained in a [place] J collar during the placement of the halo. A bifrontal and occipital regions were then shaved and prepped with Betadine solution and infiltrated with 1% lidocaine with epinephrine solution avoiding the laceration sites. The halo ring was in place with 2 frontal and occipital pins tightened to 8 pounds of torque pressure. The cervical spine gentle manipulation undertaken to try to restore the C2 dens fracture relative the body with x-ray confirmation. The halo vest was then also placed in the ring connectors of the vest with rods and locked in place at 30 pounds of pressure at each connection maintaining a neutral neck position. A final lateral cervical spine x-ray was obtained which confirmed good cervical spinal alignment. Patient tolerated the procedure well without any complications or blood loss. Balaji Dumont MD March 11, 2017 17:21
--- NOTE | 2017-03-11 17:36 | RADRPT ---
EXAM DATE/TIME: 03/11/2017 16:55 [facility] COMPARISON: CT CERVICAL SPINE W/O CONTRAST, March 06, 2017, 17:23. INDICATIONS : Post halo placement. MEDICAL HISTORY : None. SURGICAL HISTORY : None. ENCOUNTER: Subsequent ACUITY: 4 - 6 days PAIN SCORE: Non-responsive. LOCATION: Bilateral neck. FINDINGS: A single lateral view of the cervical spine was performed. The patient is a halo apparatus. The cervi carin spine alignment is satisfactory. The alignment of the dens is appropriate. Endotracheal tube and nasogastric tube are present. CONCLUSION: Satisfactory cervical spine appearance Reji Santizo MD on March 11, 2017 at 17:33 Board Certified Radiologist. This report was verified electronically.
[2017-03-11] MEDS: fentaNYL DRIP 250 ML IV SCH (19:55)
[2017-03-11] MEDS: MAGNESIUM HYDROXIDE SUSP 30 ML CUP PO SCH (20:51)
--- NOTE | 2017-03-11 20:53 | RADRPT ---
EXAM DATE/TIME: 03/11/2017 20:26 [facility] COMPARISON: CHEST SINGLE AP, March 11, 2017, 2:39. INDICATIONS : Respiratory disease. MEDICAL HISTORY : None. SURGICAL HISTORY : None. ENCOUNTER: Subsequent ACUITY: 1 week PAIN SCORE: Non-responsive. LOCATION: Bilateral chest FINDINGS: Bilateral perihilar infiltrates are present, worsening on the right and new on the left. Small, bilat eral pleural effusions are suspected. No pneumothorax seen. Halo now present. Endotracheal tube tip is approximately 5 cm above the pearl. There is a nasogastric tube coiled in t he stomach. There is a left subclavian central venous catheter with tip in the superior vena cava. CONCLUSION: Bilateral perihilar infiltrates, worse on the right and developing on the left. Halo placement. No si gnificant change lines and tubes. Reji Navarrete MD on March 11, 2017 at 20:48 Board Certified Radiologist. This report was verified electronically.
[2017-03-11] MEDS: VANCOMYCIN 1,500 MG/NS 500 ML IV SCH ×2 (22:07)
[2017-03-12] VITALS (16 sets, daily range): BP systolic 126–150; BP diastolic 77–86; PULSE 79–109; RESP 13–22; TEMP 99.1–101.8; O2SAT 97–100
[2017-03-12] MEDS ORDERED: ACETAMINOPHEN 1000 MG/100 ML VIAL IV ONE (01:00)
[2017-03-12] MEDS: CEFEPIME INJ 2,000 MG in SODIUM CHLORIDE 0.9% INJ 100 ML IV SCH ×2 (01:52→14:13)
[2017-03-12] MEDS: PROPOFOL 1000 MG/100 ML INJ 100 ML IV SCH (01:57)
[2017-03-12] MEDS: METOPROLOL TARTRATE 5 MG/5 ML VIAL IV PUSH SCH ×6 (01:58→17:32)
[2017-03-12] MEDS: CHLORHEXIDINE GLUCONATE 2 % 1 PACK (2 CLOTHS) TOP SCH (04:00)
[2017-03-12 04:26] LABS: AUTOMATED NEUTROPHIL # 14.7 TH/MM3 (1.8-7.7); BASOPHIL % 0.1 % (0.0-2.0); EOSINOPHIL # 0.1 TH/MM3 (0-0.4); EOSINOPHIL % 0.8 % (0.0-4.0); HEMATOCRIT 23.2 % (39.0-51.0); HEMO FLAGS DIFF FINAL; LYMPH % 9.9 % (9.0-44.0); LYMPHOCYTE # 1.8 TH/MM3 (1.0-4.8); MEAN CELL VOLUME 81.9 FL (80.0-100.0); MEAN CORPUSCULAR HEMOGLOBIN 27.6 PG (27.0-34.0); MEAN CORPUSCULAR HGB CONC 33.8 % (32.0-36.0); MONO % 7.1 % (0.0-8.0); NEUT % 82.1 % (16.0-70.0); PLATELET COUNT 358 TH/MM3 (150-450); RED BLOOD COUNT 2.83 MIL/MM3 (4.50-5.90); RED CELL DISTRIBUTION WIDTH 17.2 % (11.6-17.2)
[2017-03-12] MEDS: VANCOMYCIN 1,500 MG/NS 500 ML IV SCH ×4 (04:46→11:39)
[2017-03-12] MEDS: METOCLOPRAMIDE HCL 10 MG/2 ML VIAL IV SCH ×3 (04:46→21:08)
[2017-03-12] MEDS: SENNOSIDES 8.6 MG TAB PO SCH ×2 (04:47→17:31)
[2017-03-12 04:55] LABS: ALT (GPT) 33 U/L (9-52); ANION GAP 9 MEQ/L (5-15); AST (GOT) 26 U/L (15-39); BLOOD UREA NITROGEN 9 MG/DL (7-18); CHLORIDE 108 MEQ/L (98-107); GLOMERULAR FILTRATION RATE 267 ML/MIN (>89); MAGNESIUM 2.2 MG/DL (1.5-2.5); POTASSIUM 3.5 MEQ/L (3.5-5.1); SODIUM (NA) 141 MEQ/L (136-145)
[2017-03-12 04:58] LABS: ALKALINE PHOSPHATASE 74 U/L (45-117); TOTAL BILIRUBIN ADULT 0.8 MG/DL (0.2-1.0)
--- NOTE | 2017-03-12 05:40 | RADRPT ---
EXAM DATE/TIME: 03/12/2017 04:57 [facility] COMPARISON: CHEST SINGLE AP, March 11, 2017, 20:26. INDICATIONS : Short of breath. MEDICAL HISTORY : None. SURGICAL HISTORY : None. ENCOUNTER: Subsequent ACUITY: 1 week PAIN SCORE: Non-responsive. LOCATION: Bilateral chest FINDINGS: The cardiac silhouette is normal in transverse diameter. Support lines and tubes are in satisfactory position. There is improving perihilar edema. No pleural effusions are identified. CONCLUSION: 1. Decreasing perihilar pulmonary edema. Cruz Santos MD on March 12, 2017 at 5:38 Board Certified Radiologist. This report was verified electronically.
[2017-03-12] MEDS: INSULIN ASPART SUPPLEMENTAL SCALE SQ SCH ×4 (05:44→21:00)
[2017-03-12] MEDS: POTASSIUM CHLOR 40 MEQ PREMIX 100 ML IV PRN (07:40)
[2017-03-12] MEDS: FLUCONAZOLE 400 MG PREMIX BAG 200 ML IV SCH (07:40)
[2017-03-12] MEDS: CHLORHEXIDINE 0.12% (ORAL KIT) 15 ML CUP MT SCH ×2 (07:40→21:12)
[2017-03-12] MEDS: LACTULOSE SYRUP 20 GM/30 ML CUP PO SCH (07:58)
[2017-03-12] MEDS: DOCUSATE SODIUM 100 MG/10 ML UDC G-TUBE SCH ×2 (07:59→21:07)
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
[2017-03-12] MEDS: SODIUM CHLORIDE 0.9% FLUSH 10 ML FLUSH IV FLUSH SCH ×2 (09:00→21:09)
[2017-03-12] MEDS: ARTIFICIAL TEARS OPTH SOLN 15 ML BTL EACH EYE SCH ×3 (09:00→18:00)
[2017-03-12] MEDS: BACITRACIN TOP OINT 15 GM TUBE TOP SCH ×2 (09:00→21:00)
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
[2017-03-12] MEDS: levETIRAcetam INJ 500 MG in SODIUM CHLORIDE 0.9% INJ 100 ML IV SCH ×2 (09:19→21:03)
[2017-03-12] MEDS: FAMOTIDINE 20 MG/2 ML VIAL IV PUSH SCH ×2 (09:19→21:08)
[2017-03-12] MEDS ORDERED: PROPOFOL 1000 MG/100 ML INJ 100 ML IV SCH (09:45)
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
[2017-03-12 13:02] LABS: HYDROMORPHONE U POS (NEG)
[2017-03-12 13:03] LABS: BATH SALTS (MDPV) UR NEG (NEG); ECSTASY (MDMA) UR NEG (NEG); GABAPENTIN UR NEG (NEG); HEROIN (6-ACETYLMORPHINE) UR NEG (NEG); K2 SPICE UR NEG (NEG); OBMETHADONE UR NEG (NEG); OXYCODONE (PERCODAN) NEG (NEG); PHENCYCLIDINE URINE NEG (NEG)
[2017-03-12] MEDS ORDERED: diphenhydrAMINE HCL 50 MG/ML VIAL ONE (14:09)
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
[2017-03-12] MEDS: fentaNYL DRIP 250 ML IV SCH (15:43)
[2017-03-12] MEDS: ACETAMINOPHEN 325 MG TAB PO PRN ×2 (15:48→21:07)
[2017-03-12] MEDS: LEVOFLOXACIN 750 MG PREMIX INJ 150 ML IV SCH (17:32)
[2017-03-12] MEDS: LINEZOLID 600 MG PREMIX 300 ML IV SCH (18:37)
[2017-03-12] MEDS ORDERED: PHARMACY ORDERED LAB ONE (19:45)
[2017-03-12] MEDS: MAGNESIUM HYDROXIDE SUSP 30 ML CUP PO SCH (21:08)
[2017-03-13] VITALS (19 sets, daily range): BP systolic 138–187; BP diastolic 64–88; PULSE 60–108; RESP 10–18; TEMP 99.1–100.7; O2SAT 99–100
[2017-03-13] MEDS: METOPROLOL TARTRATE 5 MG/5 ML VIAL IV PUSH SCH ×5 (00:35→23:25)
[2017-03-13] MEDS: ENALAPRILAT 1.25 MG/ML VIAL IV PRN ×2 (02:58→20:17)
[2017-03-13] MEDS: CHLORHEXIDINE GLUCONATE 2 % 1 PACK (2 CLOTHS) TOP SCH (03:58)
[2017-03-13 03:59] LABS: AUTOMATED NEUTROPHIL # 12.4 TH/MM3 (1.8-7.7); BASOPHIL % 0.3 % (0.0-2.0); EOSINOPHIL # 0.1 TH/MM3 (0-0.4); EOSINOPHIL % 0.7 % (0.0-4.0); HEMATOCRIT 26.1 % (39.0-51.0); HEMO FLAGS DIFF FINAL; LYMPHOCYTE # 1.5 TH/MM3 (1.0-4.8); MEAN CELL VOLUME 82.6 FL (80.0-100.0); MEAN CORPUSCULAR HEMOGLOBIN 27.1 PG (27.0-34.0); MEAN CORPUSCULAR HGB CONC 32.8 % (32.0-36.0); MONO % 8.1 % (0.0-8.0); NEUT % 80.9 % (16.0-70.0); PLATELET COUNT 494 TH/MM3 (150-450); RED BLOOD COUNT 3.16 MIL/MM3 (4.50-5.90); RED CELL DISTRIBUTION WIDTH 16.5 % (11.6-17.2); WHITE BLOOD COUNT 15.3 TH/MM3 (4.0-11.0)
[2017-03-13 04:14] LABS: ALT (GPT) 36 U/L (9-52); ANION GAP 6 MEQ/L (5-15); AST (GOT) 31 U/L (15-39); BICARBONATE 29.6 MEQ/L (21.0-32.0); BLOOD UREA NITROGEN 9 MG/DL (7-18); CHLORIDE 103 MEQ/L (98-107); GLOMERULAR FILTRATION RATE 342 ML/MIN (>89); MAGNESIUM 2.2 MG/DL (1.5-2.5); POTASSIUM 3.9 MEQ/L (3.5-5.1); SODIUM (NA) 139 MEQ/L (136-145)
[2017-03-13 04:16] LABS: ALKALINE PHOSPHATASE 108 U/L (45-117); TOTAL BILIRUBIN ADULT 0.7 MG/DL (0.2-1.0)
[2017-03-13] MEDS: SENNOSIDES 8.6 MG TAB PO SCH ×2 (05:04→17:25)
[2017-03-13] MEDS: METOCLOPRAMIDE HCL 10 MG/2 ML VIAL IV SCH ×3 (05:04→21:59)
[2017-03-13] MEDS: LINEZOLID 600 MG PREMIX 300 ML IV SCH ×2 (05:04→17:25)
[2017-03-13 05:12] LABS: BLOOD GAS BASE EXCESS 2.3 mmol/L (-2-2); BLOOD GAS CARBOXYHEMOGLOBIN 1.2 % (0-4); BLOOD GAS HCO3 27 mmol/L (22-26); BLOOD GAS METHEMOGLOBIN 0.9 % (0-2); BLOOD GAS O2 HGB SATURATION 97 % (90-100); BLOOD GAS OXYGEN CONTENT 16.1 Vol % (12.0-20.0); BLOOD GAS PCO2 45 mmHg (38-42); BLOOD GAS PO2 154 mmHg (61-120); BLOOD GAS TOTAL HGB 11.6 G/DL (12.0-16.0); CRITICAL VALUE NO; OXYGEN DEVICE VENTILATOR; TEMP CORR TO 98.6
[2017-03-13 05:13] LABS: VENT SETTINGS CPAP / 12 / + 5 /
[2017-03-13 05:14] LABS: DRAW SITE ART LINE; STAT NO
[2017-03-13] MEDS: INSULIN ASPART SUPPLEMENTAL SCALE SQ SCH (05:49)
--- NOTE | 2017-03-13 06:07 | RADRPT ---
EXAM DATE/TIME: 03/13/2017 04:48 [place] COMPARISON: CHEST SINGLE AP, March 12, 2017, 4:57. INDICATIONS : Shortness of breath. MEDICAL HISTORY : Non-responsive SURGICAL HISTORY : Non-responsive ENCOUNTER: Subsequent ACUITY: 1 week PAIN SCORE: Non-responsive. LOCATION: Bilateral chest FINDINGS: A single view of the chest demonstrates the lungs to be symmetrically aerated without evidence of mas s, infiltrate or effusion. The cardiomediastinal contours are unremarkable. Osseous structures are intact. CONCLUSION: 1. No acute cardiopulmonary disease. Cruz Santos MD on March 13, 2017 at 6:05 Board Certified Radiologist. This report was verified electronically.
[2017-03-13] MEDS: CHLORHEXIDINE 0.12% (ORAL KIT) 15 ML CUP MT SCH ×2 (08:15→20:18)
[2017-03-13] MEDS: FAMOTIDINE 20 MG/2 ML VIAL IV PUSH SCH ×2 (09:09→20:17)
[2017-03-13] MEDS: BACITRACIN TOP OINT 15 GM TUBE TOP SCH ×2 (09:09→20:18)
[2017-03-13] MEDS: SODIUM CHLORIDE 0.9% FLUSH 10 ML FLUSH IV FLUSH SCH ×2 (09:09→20:18)
[2017-03-13] MEDS: fentaNYL DRIP 250 ML IV SCH (09:09)
[2017-03-13] MEDS: levETIRAcetam INJ 500 MG in SODIUM CHLORIDE 0.9% INJ 100 ML IV SCH ×2 (09:09→20:17)
[2017-03-13] MEDS: DOCUSATE SODIUM 100 MG/10 ML UDC G-TUBE SCH ×2 (09:09→20:17)
[2017-03-13] MEDS: ARTIFICIAL TEARS OPTH SOLN 15 ML BTL EACH EYE SCH ×3 (09:09→17:25)
[2017-03-13] MEDS: LACTULOSE SYRUP 20 GM/30 ML CUP PO SCH (09:09)
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
[2017-03-13] MEDS: LEVOFLOXACIN 750 MG PREMIX INJ 150 ML IV SCH (16:30)
--- NOTE | 2017-03-13 19:22 | RADRPT ---
EXAM DATE/TIME: 03/13/2017 18:04 [facility] COMPARISON: No previous studies available for comparison. INDICATIONS : Bilateral arm swelling. MEDICAL HISTORY : Irritable bowel syndrome. Migraines. Bipolar. T3-5 and C6 fracture. Disc protrusion L4-5 and S1. Se tenzin TGI. Cerebral edema. Subarachnoid hemorrhage. Respiratory failure. SURGICAL HISTORY : Ventirculostomy drain placement. ENCOUNTER: Initial ACUITY: 1 day PAIN SCORE: Non-responsive LOCATION: Bilateral arm. FINDINGS: RIGHT UPPER EXTREMITY: Thrombus is present in the right axillary vein. There areas of occlusive and nonocclusive superficial venous thrombosis in the right proximal to distal basilic veins. The jugular vein, cephalic and axil ceci veins appear patent. The subclavian vein is patent as well. There is a complex cystic structure in the right axilla measuring 5.8 x 6.2 x 1.8 cm. LEFT UPPER EXTREMITY: There is spontaneous flow documented in the brachial, basilic, cephalic, axillary, and subclavian vei ns. The vessels are compressible and augmentation response is documented. No filling defects are se en. The flow is phasic with respiration. Direction of flow in the jugular vein is caudal. CONCLUSION: 1. Deep venous thrombosis in the right axillary vein. 2. Superficial venous thrombosis in the right basilic vein. 3. Complex fluid collection in the right axilla which is nonspecific but could represent hematoma and /or seroma. Hermann Easley MD on March 13, 2017 at 19:18 Board Certified Radiologist. This report was verified electronically.
[2017-03-13] MEDS: ACETAMINOPHEN 325 MG TAB PO PRN (20:17)
[2017-03-13] MEDS: MAGNESIUM HYDROXIDE SUSP 30 ML CUP PO SCH (20:17)
[2017-03-13] MEDS ORDERED: LABETALOL HCL 100 MG/20 ML VIAL ONE (20:39)
[2017-03-13] MEDS ORDERED: LABETALOL HCL 100 MG/20 ML VIAL IV PUSH ONE (20:40)
[2017-03-13] MEDS: cloNIDine HCL 0.1 MG TAB SL PRN ×2 (21:59→22:27)
[2017-03-14] VITALS (21 sets, daily range): BP systolic 135–155; BP diastolic 75–88; PULSE 55–108; RESP 14–17; TEMP 100–101.6; O2SAT 95–100
[2017-03-14] MEDS: ACETAMINOPHEN 325 MG TAB PO PRN (01:42)
[2017-03-14] MEDS: ENALAPRILAT 1.25 MG/ML VIAL IV PRN (03:03)
[2017-03-14] MEDS ORDERED: LABETALOL HCL 100 MG/20 ML VIAL IV PUSH ONE (03:30)
[2017-03-14] MEDS: CHLORHEXIDINE GLUCONATE 2 % 1 PACK (2 CLOTHS) TOP SCH (04:30)
[2017-03-14 04:32] LABS: AUTOMATED NEUTROPHIL # 11.4 TH/MM3 (1.8-7.7); BASOPHIL % 0.3 % (0.0-2.0); EOSINOPHIL # 0.1 TH/MM3 (0-0.4); EOSINOPHIL % 0.7 % (0.0-4.0); HEMATOCRIT 26.9 % (39.0-51.0); LYMPH % 8.5 % (9.0-44.0); LYMPHOCYTE # 1.2 TH/MM3 (1.0-4.8); MEAN CORPUSCULAR HEMOGLOBIN 28.1 PG (27.0-34.0); MEAN CORPUSCULAR HGB CONC 34.7 % (32.0-36.0); MONO % 7.8 % (0.0-8.0); NEUT % 82.7 % (16.0-70.0); PLATELET COUNT 653 TH/MM3 (150-450); RED BLOOD COUNT 3.32 MIL/MM3 (4.50-5.90); RED CELL DISTRIBUTION WIDTH 16.5 % (11.6-17.2); WHITE BLOOD COUNT 13.8 TH/MM3 (4.0-11.0)
[2017-03-14 04:51] LABS: ALKALINE PHOSPHATASE 70 U/L (45-117); ALT (GPT) 32 U/L (9-52); ANION GAP 9 MEQ/L (5-15); AST (GOT) 29 U/L (15-39); BICARBONATE 28.6 MEQ/L (21.0-32.0); BLOOD UREA NITROGEN 11 MG/DL (7-18); CHLORIDE 100 MEQ/L (98-107); GLOMERULAR FILTRATION RATE 228 ML/MIN (>89); MAGNESIUM 2.2 MG/DL (1.5-2.5); POTASSIUM 3.4 MEQ/L (3.5-5.1); SODIUM (NA) 138 MEQ/L (136-145)
--- NOTE | 2017-03-14 04:51 | RADRPT ---
EXAM DATE/TIME: 03/14/2017 04:01 [facility] COMPARISON: CHEST SINGLE AP, March 13, 2017, 4:48. INDICATIONS : Shortness of breath. MEDICAL HISTORY : Non-responsive. SURGICAL HISTORY : Non-responsive. ENCOUNTER: Subsequent ACUITY: 1 week PAIN SCORE: Non-responsive. LOCATION: Bilateral chest FINDINGS: The cardiac silhouette is normal in transverse diameter. There is atelectasis in the right midlungSup port lines and tubes are in satisfactory position. No pleural effusions are identified. CONCLUSION: 1. Subsegmental atelectasis right midlung Cruz Santos MD on March 14, 2017 at 4:49 Board Certified Radiologist. This report was verified electronically.
[2017-03-14 04:55] LABS: HEMO FLAGS AUTO DIFF
[2017-03-14] MEDS: METOCLOPRAMIDE HCL 10 MG/2 ML VIAL IV SCH ×3 (05:19→20:14)
[2017-03-14] MEDS: POTASSIUM CHLOR 20 MEQ PREMIX 100 ML IV PRN ×2 (05:19→08:23)
[2017-03-14] MEDS: METOPROLOL TARTRATE 5 MG/5 ML VIAL IV PUSH SCH ×4 (05:19→17:32)
[2017-03-14] MEDS: SENNOSIDES 8.6 MG TAB PO SCH ×2 (06:16→17:45)
[2017-03-14] MEDS: LINEZOLID 600 MG PREMIX 300 ML IV SCH (06:16)
[2017-03-14 06:29] LABS: BLOOD GAS BASE EXCESS 2.7 mmol/L (-2-2); BLOOD GAS CARBOXYHEMOGLOBIN 1.5 % (0-4); BLOOD GAS HCO3 26 mmol/L (22-26); BLOOD GAS METHEMOGLOBIN 0.7 % (0-2); BLOOD GAS O2 HGB SATURATION 97 % (90-100); BLOOD GAS OXYGEN CONTENT 13.6 Vol % (12.0-20.0); BLOOD GAS PCO2 39 mmHg (38-42); BLOOD GAS PO2 128 mmHg (61-120); BLOOD GAS TOTAL HGB 9.8 G/DL (12.0-16.0); CRITICAL VALUE NO; OXYGEN DEVICE VENTILATOR; TEMP CORR TO 98.6; VENT SETTINGS PRVC / AC /
[2017-03-14 06:30] LABS: DRAW SITE LT RADIAL; FIO2 35 %; NUMBER OF ARTERIAL PUNCTURES 1; STAT YES
[2017-03-14 07:17] LABS: BANDS 20 % (0-6); CORRECTED NUCLEATED RBC 3 /100 WBC (0-0); NEUTROPHIL # MANUAL DIFF 12.4 TH/MM3 (1.8-7.7); PLATELET ESTIMATE SMEAR HIGH (NORMAL); POLYS (SEG NEUTROPHILS) 70 % (16-70); WBC DIFF SAMPLE 100
[2017-03-14 07:18] LABS: PLATELET MORPHOLOGY NORMAL (NORMAL); SCAN/DIFF FINAL DIFF MANUAL
[2017-03-14] MEDS: fentaNYL DRIP 250 ML IV SCH (08:21)
[2017-03-14] MEDS: levETIRAcetam INJ 500 MG in SODIUM CHLORIDE 0.9% INJ 100 ML IV SCH ×2 (08:21→20:14)
[2017-03-14] MEDS: SODIUM CHLORIDE 0.9% FLUSH 10 ML FLUSH IV FLUSH SCH ×2 (08:22→20:15)
[2017-03-14] MEDS: FAMOTIDINE 20 MG/2 ML VIAL IV PUSH SCH ×2 (08:22→20:14)
[2017-03-14] MEDS: BACITRACIN TOP OINT 15 GM TUBE TOP SCH ×2 (08:22→20:14)
[2017-03-14] MEDS: LACTULOSE SYRUP 20 GM/30 ML CUP PO SCH (08:22)
[2017-03-14] MEDS: DOCUSATE SODIUM 100 MG/10 ML UDC G-TUBE SCH ×2 (08:22→20:14)
[2017-03-14] MEDS: CHLORHEXIDINE 0.12% (ORAL KIT) 15 ML CUP MT SCH ×2 (08:22→20:01)
[2017-03-14] MEDS: ARTIFICIAL TEARS OPTH SOLN 15 ML BTL EACH EYE SCH ×3 (08:22→17:44)
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
[2017-03-14] MEDS: MORPHINE SULFATE 4 MG/ML INJ IV PRN ×2 (15:43→19:30)
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
[2017-03-14] MEDS: MAGNESIUM HYDROXIDE SUSP 30 ML CUP PO SCH (20:14)
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
[2017-03-15] VITALS (18 sets, daily range): BP systolic 129–155; BP diastolic 77–99; PULSE 20–128; RESP 14–24; TEMP 99–102.7; O2SAT 90–100
[2017-03-15] MEDS: METOPROLOL TARTRATE 5 MG/5 ML VIAL IV PUSH SCH ×5 (00:05→23:14)
[2017-03-15] MEDS: CHLORHEXIDINE GLUCONATE 2 % 1 PACK (2 CLOTHS) TOP SCH (04:00)
[2017-03-15] MEDS: METOCLOPRAMIDE HCL 10 MG/2 ML VIAL IV SCH ×3 (05:44→20:37)
[2017-03-15] MEDS: SENNOSIDES 8.6 MG TAB PO SCH ×2 (05:44→18:00)
[2017-03-15] MEDS: ARTIFICIAL TEARS OPTH SOLN 15 ML BTL EACH EYE SCH ×3 (08:00→18:00)
[2017-03-15] MEDS: DOCUSATE SODIUM 100 MG/10 ML UDC G-TUBE SCH (08:02)
[2017-03-15] MEDS: FAMOTIDINE 20 MG/2 ML VIAL IV PUSH SCH (08:02)
[2017-03-15] MEDS: BACITRACIN TOP OINT 15 GM TUBE TOP SCH ×2 (08:02→20:37)
[2017-03-15] MEDS: LACTULOSE SYRUP 20 GM/30 ML CUP PO SCH (08:02)
[2017-03-15] MEDS: CHLORHEXIDINE 0.12% (ORAL KIT) 15 ML CUP MT SCH (08:02)
[2017-03-15] MEDS: levETIRAcetam INJ 500 MG in SODIUM CHLORIDE 0.9% INJ 100 ML IV SCH (08:03)
[2017-03-15] MEDS: SODIUM CHLORIDE 0.9% FLUSH 10 ML FLUSH IV FLUSH SCH ×2 (08:03→20:33)
[2017-03-15] MEDS: fentaNYL DRIP 250 ML IV SCH (08:26)
[2017-03-15] MEDS ORDERED: LIDOCAINE 1%/EPINEPHrine 1:100,000 SOLN 20 ML VIAL INFIL ONE (08:30)
[2017-03-15] MEDS ORDERED: LIDOCAINE 1%/EPINEPHrine 1:100,000 SOLN 50 ML VIAL ONE (08:39)
[2017-03-15] MEDS ORDERED: BISACODYL 10 MG SUPP RECTAL ONE (09:30)
[2017-03-15 10:25] LABS: AUTOMATED NEUTROPHIL # 20.8 TH/MM3 (1.8-7.7); BASOPHIL # 0.1 TH/MM3 (0-0.2); BASOPHIL % 0.3 % (0.0-2.0); EOSINOPHIL # 0.1 TH/MM3 (0-0.4); EOSINOPHIL % 0.3 % (0.0-4.0); HEMATOCRIT 31.8 % (39.0-51.0); HEMO FLAGS DIFF FINAL; LYMPH % 4.7 % (9.0-44.0); LYMPHOCYTE # 1.1 TH/MM3 (1.0-4.8); MEAN CELL VOLUME 81.3 FL (80.0-100.0); MEAN CORPUSCULAR HEMOGLOBIN 28.1 PG (27.0-34.0); MEAN CORPUSCULAR HGB CONC 34.5 % (32.0-36.0); MONO % 5.6 % (0.0-8.0); NEUT % 89.1 % (16.0-70.0); PLATELET COUNT 915 TH/MM3 (150-450); RED BLOOD COUNT 3.91 MIL/MM3 (4.50-5.90); RED CELL DISTRIBUTION WIDTH 16.3 % (11.6-17.2); WHITE BLOOD COUNT 23.3 TH/MM3 (4.0-11.0)
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
[2017-03-15] MEDS: MORPHINE SULFATE 4 MG/ML INJ IV PRN (11:18)
[2017-03-15 11:47] LABS: BICARBONATE 28.4 MEQ/L (21.0-32.0); POTASSIUM 3.8 MEQ/L (3.5-5.1)
--- NOTE | 2017-03-15 11:51 | HHI.PR ---
Neuropsych Progress Notes/Response to Tx Contents of Sessions: Level of Consciousness Time with Patient: 15 minutes Premorbid psychological status Premorbid Cognitive, Emotional and Behavioral Status: Unstable. The patient has an unknown number of years of education and no real work history prior to this injury. The patient has prior psychiatric difficulties, including reportedly bipolar disorder (reported by grandmother to staff but not independently corroborated). Substance abuse history includes polysubstance dependence, in controlled environment. Behavioral Reactions of Patient and Family/Support System: Tenuous. The patient apparently lives with his grandmother. The patients family is experiencing ongoing issues of adjustment given the nature of the injury, and this aspect of recovery will require ongoing monitoring. Emotional/Behavioral Status of Patient and Family/Support System: Unstable. Pertinent issues, if appropriate to this patients clinical care, are described in detail above. Maximizing acute care outcome It is recommended that the patient be monitored for emergent behavioral impulsivity as the medical condition evolves. This patients neuropathological challenges may limit their rehabilitation potential going forward, and these challenges will require specialized therapeutic skills to maximize outcome. Additionally, the patients family is experiencing ongoing issues of adjustment given the traumatic nature of the injury, and they will benefit from ongoing psychological assistance. Anticipated Problems Ongoing areas of concern will include behavioral impulsivity, lack of insight and judgment, which is expected to improve with time and treatment. Treatment Plan This clinician will continue to follow with you throughout the course of this patients acute care treatment, and I will be available to meet with the patient s family/support system to facilitate their understanding and the ongoing care of their family member. The goals of neuropsychological intervention shall be both educational and supportive to the family/support system as is deemed clinically appropriate. [place] Level: IV:Confused/Agitated-maximal assist Impression Young man with severe traumatic brain injury superimposed on underlying history of polysubstance dependence. Diagnosis: (1) Major neurocognitive disorder as late effect of traumatic brain injury with behavioral disturbance Status: Acute (2) Polysubstance dependence in controlled environment Status: Acute Progress Note Narrative Ongoing follow-up of patient seen during daily trauma rounds. This is day 9 post injury. The patient is neurologically stable, he is awake and follows. He is on no propofol for sedation, and is on morphine and fentanyl for pain control. He is in a MIN/LOW stim room. He is rated as a Rancho IV due to restlessness at this stage of his recovery. I will continue to follow. Miguel Madrid PhD March 15, 2017 11:51
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
[2017-03-15] MEDS: ENALAPRILAT 1.25 MG/ML VIAL IV PRN (13:51)
[2017-03-15] MEDS: RESP: ALBUTEROL 2.5 MG/IPRATROPIUM 0.5 MG NEB (SCH) NEB ×2 (15:57→20:50)
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
[2017-03-15] MEDS: MAGNESIUM HYDROXIDE SUSP 30 ML CUP PO SCH (20:32)
[2017-03-15] MEDS: FAMOTIDINE 20 MG TAB PO SCH (20:37)
[2017-03-15] MEDS: ACETAMINOPHEN 325 MG TAB PO PRN (21:09)
[2017-03-16] VITALS (14 sets, daily range): BP systolic 129–150; BP diastolic 66–97; PULSE 84–136; RESP 16–24; TEMP 98.6–102.7; O2SAT 97–100
[2017-03-16] MEDS ORDERED: chlorproMAZINE HCL 25 MG TAB PO ONE (02:45)
[2017-03-16] MEDS: RESP: ALBUTEROL 2.5 MG/IPRATROPIUM 0.5 MG NEB (SCH) NEB ×4 (03:24→20:47)
[2017-03-16] MEDS: CHLORHEXIDINE GLUCONATE 2 % 1 PACK (2 CLOTHS) TOP SCH (03:50)
[2017-03-16 05:05] LABS: AUTOMATED NEUTROPHIL # 29.9 TH/MM3 (1.8-7.7); BASOPHIL # 0.1 TH/MM3 (0-0.2); BASOPHIL % 0.2 % (0.0-2.0); HEMATOCRIT 37.8 % (39.0-51.0); LYMPH % 3.1 % (9.0-44.0); MEAN CELL VOLUME 82.4 FL (80.0-100.0); MEAN CORPUSCULAR HEMOGLOBIN 27.1 PG (27.0-34.0); MEAN CORPUSCULAR HGB CONC 32.9 % (32.0-36.0); MONO % 4.4 % (0.0-8.0); NEUT % 92.3 % (16.0-70.0); PLATELET COUNT 1239 TH/MM3 (150-450); RED BLOOD COUNT 4.58 MIL/MM3 (4.50-5.90); RED CELL DISTRIBUTION WIDTH 16.9 % (11.6-17.2); WHITE BLOOD COUNT 32.5 TH/MM3 (4.0-11.0)
[2017-03-16] MEDS: METOPROLOL TARTRATE 5 MG/5 ML VIAL IV PUSH SCH ×3 (05:06→18:10)
[2017-03-16] MEDS: METOCLOPRAMIDE HCL 10 MG/2 ML VIAL IV SCH (05:06)
[2017-03-16 05:17] LABS: HEMO FLAGS AUTO DIFF
[2017-03-16 05:34] LABS: ALKALINE PHOSPHATASE 125 U/L (45-117); ALT (GPT) 76 U/L (9-52); ANION GAP 12 MEQ/L (5-15); AST (GOT) 43 U/L (15-39); BICARBONATE 28.9 MEQ/L (21.0-32.0); BLOOD UREA NITROGEN 23 MG/DL (7-18); CHLORIDE 98 MEQ/L (98-107); GLOMERULAR FILTRATION RATE 169 ML/MIN (>89); POTASSIUM 3.8 MEQ/L (3.5-5.1); SODIUM (NA) 139 MEQ/L (136-145); TOTAL BILIRUBIN ADULT 1.8 MG/DL (0.2-1.0)
[2017-03-16] MEDS: SENNOSIDES 8.6 MG TAB PO SCH ×2 (05:44→18:00)
[2017-03-16] MEDS ORDERED: VANCOMYCIN 1,000 MG/NS 250 ML IV SCH ×2 (06:15)
[2017-03-16] MEDS ORDERED: PIPERACIL-TAZO 3.375 GM PREMIX 50 ML IV SCH (06:15)
[2017-03-16] MEDS: SODIUM CHLOR 0.9% 1000 ML INJ 1,000 ML IV SCH ×2 (06:30→17:56)
[2017-03-16] MEDS: SODIUM CHLORIDE 0.9% FLUSH 10 ML FLUSH IV FLUSH SCH ×2 (08:01→21:00)
[2017-03-16] MEDS: BACITRACIN TOP OINT 15 GM TUBE TOP SCH ×2 (08:01→21:00)
[2017-03-16] MEDS: ARTIFICIAL TEARS OPTH SOLN 15 ML BTL EACH EYE SCH ×3 (08:01→18:00)
[2017-03-16 08:10] LABS: BASOPHILS 1 % (0-2); MYELOCYTES 1 % (0-0); NEUTROPHIL # MANUAL DIFF 29.6 TH/MM3 (1.8-7.7); PLATELET ESTIMATE SMEAR HIGH (NORMAL); PLATELET MORPHOLOGY NORMAL (NORMAL); POLYS (SEG NEUTROPHILS) 90 % (16-70); SCAN/DIFF FINAL DIFF MANUAL; WBC DIFF SAMPLE 100
[2017-03-16] MEDS: FAMOTIDINE 20 MG TAB PO SCH ×2 (08:27→21:00)
[2017-03-16] MEDS: LACTULOSE SYRUP 20 GM/30 ML CUP PO SCH (08:27)
[2017-03-16] MEDS: ONDANSETRON HCL 4 MG/2 ML VIAL IV PRN (08:55)
[2017-03-16] MEDS ORDERED: Vancomycin Consult Pharmacy 1 EA OTHER SCH (09:30)
[2017-03-16] MEDS ORDERED: VANCOMYCIN 1,000 MG/NS 250 ML IV ONE ×2 (10:00)
[2017-03-16] MEDS ORDERED: SODIUM CHLOR 0.9% 1000 ML INJ 1,000 ML IV ONE (10:30)
[2017-03-16] MEDS: MICAFUNGIN INJ 150 MG in SODIUM CHLORIDE 0.9% INJ 100 ML IV SCH ×2 (10:36→10:44)
[2017-03-16] MEDS: ASPIRIN 325 MG TAB PO SCH (10:45)
[2017-03-16] MEDS: ENOXAPARIN SODIUM 40 MG/0.4 ML SYRINGE SQ SCH (10:45)
--- NOTE | 2017-03-16 11:06 | RADRPT ---
EXAM DATE/TIME: 03/16/2017 10:35 [facility] COMPARISON: CHEST SINGLE AP, March 13, 2017, 4:48. CHEST SINGLE AP, March 14, 2017, 4:01. INDICATIONS : Cough starting today MEDICAL HISTORY : None. SURGICAL HISTORY : None. ENCOUNTER: Initial ACUITY: 1 day PAIN SCORE: Non-responsive. LOCATION: Bilateral chest FINDINGS: A single view of the chest demonstrates the lungs to be symmetrically aerated without evidence of mas s, infiltrate or effusion. There is stable atelectasis in the right perihilar region. The cardiomedi astinal contours are unremarkable. Osseous structures are intact. There is artifact from the halo tr action device. CONCLUSION: Stable atelectasis with no new infiltrates. Hermann Easley MD on March 16, 2017 at 11:03 Board Certified Radiologist. This report was verified electronically.
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
[2017-03-16] MEDS: PIPERACIL-TAZO 4.5 GM PREMIX 100 ML IV SCH ×2 (12:11→18:10)
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
[2017-03-16] MEDS ORDERED: DIATRIZOATE MEGLUM/DIATRIZOATE SOD 9 ML CUP PO ONE (12:15)
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
[2017-03-16] MEDS ORDERED: IOHEXOL 350 MG/ML 10 ML VIAL (for RAD DIAG) IV ONE (16:58)
--- NOTE | 2017-03-16 17:32 | RADRPT ---
EXAM DATE/TIME: 03/16/2017 16:46 [facility] COMPARISON: No previous studies available for comparison. INDICATIONS : Evaluate for hemorrhage. RADIATION DOSE: 56.35 CTDIvol (mGy) MEDICAL HISTORY : None SURGICAL HISTORY : None. ENCOUNTER: Initial ACUITY: 1 day PAIN SCALE: 3/10 LOCATION: cranial TECHNIQUE: Multiple contiguous axial images were obtained of the head. Using automated exposure control and adj ustment of the mA and/or kV according to patient size, radiation dose was kept as low as reasonably a chievable to obtain optimal diagnostic quality images. FINDINGS: Comparison March 07. Previously described subarachnoid and intraventricular hemorrhage is less appare nt on the current examination. Previous punctate hemorrhages in the basal ganglia have also resolved possibly with some mild residual encephalomalacia. Previous ventricular shunt has been removed. There is now fluid in the sphenoid sinus. A halo device present. CONCLUSION: 1. Overall improvement in subarachnoid, intraventricular and basal ganglia hemorrhage since March 07. No new hemorrhage or mass effect. Removal of ventriculostomy tube. No hydrocephalus. Fluid in spheno id sinus. Steve Trejo MD on March 16, 2017 at 17:27 Board Certified Radiologist. This report was verified electronically.
--- NOTE | 2017-03-16 17:35 | RADRPT ---
EXAM DATE/TIME: 03/16/2017 16:51 [facility] COMPARISON: No previous studies available for comparison. INDICATIONS : Leukocytosis; fever, abdomen pain. IV CONTRAST: 85 cc Omnipaque 350 (iohexol) IV ORAL CONTRAST: No oral contrast ingested. RADIATION DOSE: 9.96 CTDIvol (mGy) MEDICAL HISTORY : None SURGICAL HISTORY : Cervical. ENCOUNTER: Initial ACUITY: 1 day PAIN SCALE: 5/10 LOCATION: Bilateral neck TECHNIQUE: Volumetric scanning of the abdomen and pelvis was performed. Using automated exposure control and ad justment of the mA and/or kV according to patient size, radiation dose was kept as low as reasonably achievable to obtain optimal diagnostic quality images. FINDINGS: There is subsegmental basilar airspace disease most characteristic of atelectasis. Mild fatty liver. Spleen, adrenals, kidneys and pancreas unremarkable. No calcified gallstones or yeny iary ductal dilatation. There is no free fluid. No free air. There is some subcutaneous air in anterior abdominal wall probab ly from injections. There is air within the bladder possibly from instrumentation. No loculated fluid within the abdomen or pelvis to suggest abscess formation. CONCLUSION: 1. Subsegmental airspace disease at the lung bases. Differential diagnosis includes atelectasis or mi nimal pneumonic infiltrate. 2. No loculated fluid in the abdomen or pelvis to suggest abscess. 3. Air present in the anterior bladder which could be related to recent instrumentation. Mild fatty l iver. Steve Trejo MD on March 16, 2017 at 17:30 Board Certified Radiologist. This report was verified electronically.
--- NOTE | 2017-03-16 17:51 | EC ---
Study Study Date:03/16/2017 STUDY CONCLUSIONS SUMMARY LEFT VENTRICLE: The cavity size was normal. Wall thickness was normal. Systolic function was normal. The estimated ejection fraction was in the range of 55% to 60%. Wall motion was normal; there were no regional wall motion abnormalities. Recommendations: Very poor acoustic window. AVA highly recomended If LV function is below 40, please consider prescribing an ACEI or ARB or document rationale for non-use. PROCEDURE DATA STUDY STATUS: Elective. Procedure: Transthoracic echocardiography. Image quality was poor. Scanning was performed from the parasternal, apical, and subcostal acoustic windows. Study completion: The patient tolerated the procedure well. Transthoracic echocardiography. M-mode and limited 2D. Patient status: Inpatient. CARDIAC ANATOMY LEFT VENTRICLE: The cavity size was normal. Wall thickness was normal. Systolic function was normal. The estimated ejection fraction was in the range of 55% to 60%. Wall motion was normal; there were no regional wall motion abnormalities. AORTIC VALVE: Trileaflet; normal thickness leaflets. Doppler: Transvalvular velocity was within the normal range. There was no stenosis. No regurgitation. AORTA: Aortic root: The aortic root was normal in size. LEFT ATRIUM: The atrium was normal in size. RIGHT VENTRICLE: The cavity size was normal. Wall thickness was normal. PULMONIC VALVE: Doppler: Transvalvular velocity was within the normal range. There was no evidence for stenosis. No regurgitation. PULMONARY ARTERY: The main pulmonary artery was normal-sized. Systolic pressure was within the normal range. RIGHT ATRIUM: The atrium was normal in size. PERICARDIUM: There was no pericardial effusion. SYSTEMIC VEINS: Inferior vena cava: The vessel was normal in size. Prepared and signed by Felipe Ojeda [id number]
[2017-03-16] MEDS: VANCOMYCIN 1,500 MG/NS 500 ML IV SCH ×2 (18:10)
[2017-03-16] MEDS: MAGNESIUM HYDROXIDE SUSP 30 ML CUP PO SCH (21:00)
[2017-03-17] VITALS (13 sets, daily range): BP systolic 136–158; BP diastolic 71–91; PULSE 72–120; RESP 13–21; TEMP 98.4–99.8; O2SAT 97–100
[2017-03-17] MEDS: METOPROLOL TARTRATE 5 MG/5 ML VIAL IV PUSH SCH ×5 (00:04→23:20)
[2017-03-17] MEDS: PIPERACIL-TAZO 4.5 GM PREMIX 100 ML IV SCH ×5 (00:04→23:19)
[2017-03-17] MEDS: VANCOMYCIN 1,500 MG/NS 500 ML IV SCH ×4 (02:00→10:24)
[2017-03-17] MEDS: RESP: ALBUTEROL 2.5 MG/IPRATROPIUM 0.5 MG NEB (SCH) NEB ×4 (03:40→21:30)
[2017-03-17] MEDS: SODIUM CHLOR 0.9% 1000 ML INJ 1,000 ML IV SCH ×3 (03:56→23:16)
[2017-03-17] MEDS: CHLORHEXIDINE GLUCONATE 2 % 1 PACK (2 CLOTHS) TOP SCH (04:00)
[2017-03-17 05:47] LABS: AUTOMATED NEUTROPHIL # 15.1 TH/MM3 (1.8-7.7); BASOPHIL # 0.1 TH/MM3 (0-0.2); BASOPHIL % 0.4 % (0.0-2.0); EOSINOPHIL # 0.1 TH/MM3 (0-0.4); EOSINOPHIL % 0.5 % (0.0-4.0); HEMATOCRIT 29.2 % (39.0-51.0); HEMO FLAGS DIFF FINAL; LYMPH % 9.2 % (9.0-44.0); LYMPHOCYTE # 1.7 TH/MM3 (1.0-4.8); MEAN CELL VOLUME 83.2 FL (80.0-100.0); MEAN CORPUSCULAR HGB CONC 32.4 % (32.0-36.0); NEUT % 83.9 % (16.0-70.0); PLATELET COUNT 956 TH/MM3 (150-450); RED BLOOD COUNT 3.51 MIL/MM3 (4.50-5.90); RED CELL DISTRIBUTION WIDTH 17.2 % (11.6-17.2)
[2017-03-17] MEDS: SENNOSIDES 8.6 MG TAB PO SCH ×2 (05:47→16:59)
[2017-03-17 06:13] LABS: ALKALINE PHOSPHATASE 92 U/L (45-117); ALT (GPT) 55 U/L (9-52); ANION GAP 9 MEQ/L (5-15); AST (GOT) 39 U/L (15-39); BICARBONATE 24.5 MEQ/L (21.0-32.0); BLOOD UREA NITROGEN 12 MG/DL (7-18); CHLORIDE 108 MEQ/L (98-107); GLOMERULAR FILTRATION RATE 342 ML/MIN (>89); POTASSIUM 3.6 MEQ/L (3.5-5.1); SODIUM (NA) 141 MEQ/L (136-145); TOTAL BILIRUBIN ADULT 1.3 MG/DL (0.2-1.0)
[2017-03-17] MEDS: ARTIFICIAL TEARS OPTH SOLN 15 ML BTL EACH EYE SCH ×3 (07:51→17:11)
[2017-03-17] MEDS: FAMOTIDINE 20 MG TAB PO SCH ×2 (07:52→20:35)
[2017-03-17] MEDS: BACITRACIN TOP OINT 15 GM TUBE TOP SCH ×2 (07:52→20:35)
[2017-03-17] MEDS: ASPIRIN 325 MG TAB PO SCH (07:52)
[2017-03-17] MEDS: SODIUM CHLORIDE 0.9% FLUSH 10 ML FLUSH IV FLUSH SCH ×2 (07:52→20:35)
[2017-03-17] MEDS: LACTULOSE SYRUP 20 GM/30 ML CUP PO SCH (07:53)
[2017-03-17] MEDS ORDERED: PHARMACY ORDERED LAB ONE (09:45)
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
[2017-03-17] MEDS: ENOXAPARIN SODIUM 40 MG/0.4 ML SYRINGE SQ SCH (10:24)
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
[2017-03-17] MEDS: VANCOMYCIN INJ 1,250 MG in SODIUM CHLOR 0.9% 250 ML INJ 250 ML IV SCH ×2 (16:10→20:54)
[2017-03-17] MEDS: MAGNESIUM HYDROXIDE SUSP 30 ML CUP PO SCH (20:35)
[2017-03-17] MEDS: ONDANSETRON HCL 4 MG/2 ML VIAL IV PRN (20:38)
[2017-03-17] MEDS: MORPHINE SULFATE 4 MG/ML INJ IV PRN (21:14)
[2017-03-18] VITALS (7 sets, daily range): BP systolic 128–146; BP diastolic 59–85; PULSE 100–113; RESP 12–20; TEMP 98.4–100.6; O2SAT 97–100
[2017-03-18] MEDS: VANCOMYCIN INJ 1,250 MG in SODIUM CHLOR 0.9% 250 ML INJ 250 ML IV SCH ×3 (03:33→16:07)
[2017-03-18] MEDS: CHLORHEXIDINE GLUCONATE 2 % 1 PACK (2 CLOTHS) TOP SCH (03:34)
[2017-03-18] MEDS: RESP: ALBUTEROL 2.5 MG/IPRATROPIUM 0.5 MG NEB (SCH) NEB (03:49)
[2017-03-18] MEDS: PIPERACIL-TAZO 4.5 GM PREMIX 100 ML IV SCH ×4 (05:16→23:51)
[2017-03-18] MEDS: SENNOSIDES 8.6 MG TAB PO SCH ×2 (05:16→16:53)
[2017-03-18] MEDS: METOPROLOL TARTRATE 5 MG/5 ML VIAL IV PUSH SCH ×2 (05:16→12:24)
[2017-03-18] MEDS: ASPIRIN 325 MG TAB PO SCH (08:13)
[2017-03-18] MEDS: LACTULOSE SYRUP 20 GM/30 ML CUP PO SCH (08:13)
[2017-03-18] MEDS: ARTIFICIAL TEARS OPTH SOLN 15 ML BTL EACH EYE SCH ×3 (08:13→17:17)
[2017-03-18] MEDS: FAMOTIDINE 20 MG TAB PO SCH (08:13)
[2017-03-18] MEDS: SODIUM CHLORIDE 0.9% FLUSH 10 ML FLUSH IV FLUSH SCH ×2 (08:14→21:14)
[2017-03-18] MEDS: BACITRACIN TOP OINT 15 GM TUBE TOP SCH ×2 (09:00→21:17)
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
[2017-03-18] MEDS ORDERED: PHARMACY ORDERED LAB ONE (09:45)
[2017-03-18] MEDS: MICAFUNGIN INJ 150 MG in SODIUM CHLORIDE 0.9% INJ 100 ML IV SCH (10:14)
[2017-03-18] MEDS: SODIUM CHLOR 0.9% 1000 ML INJ 1,000 ML IV SCH ×2 (10:15→21:14)
[2017-03-18 10:27] LABS: ALKALINE PHOSPHATASE 102 U/L (45-117); ALT (GPT) 73 U/L (9-52); ANION GAP 9 MEQ/L (5-15); AST (GOT) 52 U/L (15-39); BICARBONATE 24.5 MEQ/L (21.0-32.0); BLOOD UREA NITROGEN 8 MG/DL (7-18); CHLORIDE 105 MEQ/L (98-107); GLOMERULAR FILTRATION RATE 252 ML/MIN (>89); POTASSIUM 3.5 MEQ/L (3.5-5.1); SODIUM (NA) 138 MEQ/L (136-145); TOTAL BILIRUBIN ADULT 1.2 MG/DL (0.2-1.0)
[2017-03-18] MEDS: MORPHINE SULFATE 4 MG/ML INJ IV PRN ×2 (10:43→14:54)
[2017-03-18] MEDS: ENOXAPARIN SODIUM 40 MG/0.4 ML SYRINGE SQ SCH (10:43)
[2017-03-18 11:02] LABS: AUTOMATED NEUTROPHIL # 11.1 TH/MM3 (1.8-7.7); BASOPHIL # 0.1 TH/MM3 (0-0.2); BASOPHIL % 0.5 % (0.0-2.0); EOSINOPHIL # 0.1 TH/MM3 (0-0.4); EOSINOPHIL % 0.9 % (0.0-4.0); HEMATOCRIT 28.4 % (39.0-51.0); HEMO FLAGS DIFF FINAL; LYMPHOCYTE # 1.1 TH/MM3 (1.0-4.8); MEAN CELL VOLUME 83.7 FL (80.0-100.0); MEAN CORPUSCULAR HEMOGLOBIN 27.6 PG (27.0-34.0); MONO % 6.5 % (0.0-8.0); NEUT % 84.1 % (16.0-70.0); PLATELET COUNT 1067 TH/MM3 (150-450); RED CELL DISTRIBUTION WIDTH 17.2 % (11.6-17.2); WHITE BLOOD COUNT 13.2 TH/MM3 (4.0-11.0)
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
[2017-03-18] MEDS ORDERED: BISACODYL EC 5 MG TABEC PO ONE (15:30)
[2017-03-18] MEDS ORDERED: BISACODYL 10 MG SUPP RECTAL ONE (15:30)
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
[2017-03-18] MEDS: ACETAMINOPHEN 325 MG TAB PO PRN (18:13)
[2017-03-18] MEDS: MAGNESIUM HYDROXIDE SUSP 30 ML CUP PO SCH (21:14)
[2017-03-18] MEDS: AMOXICILLIN/CLAVULANATE K 500 MG TAB PO SCH (21:14)
[2017-03-18] MEDS ORDERED: LACT10SO PO (21:40)
[2017-03-18] MEDS ORDERED: ENOX40P SQ (21:40)
[2017-03-18] MEDS ORDERED: MILKSUS PO (21:40)
[2017-03-18] MEDS ORDERED: SENN8.6T15 PO (21:40)
[2017-03-18] MEDS ORDERED: AUGM500T7 PO (21:40)
[2017-03-18] MEDS ORDERED: HYDR-3580 PO (21:40)
[2017-03-18] MEDS ORDERED: ASPI325T PO (21:40)
[2017-03-19] VITALS: BP 158/83; PULSE 116; RESP 20; TEMP 100.6; O2SAT 100
[2017-03-19] MEDS: ACETAMINOPHEN/HYDROcodone 325 MG/7.5 MG TAB PO PRN ×4 (01:24→14:51)
[2017-03-19 04:00] VITALS: BP 138/81; PULSE 97; RESP 20; TEMP 97.7; O2SAT 100
[2017-03-19] MEDS: SENNOSIDES 8.6 MG TAB PO SCH ×2 (04:27→18:38)
[2017-03-19] MEDS: ACETAMINOPHEN 325 MG TAB PO PRN (04:27)
[2017-03-19] MEDS: PIPERACIL-TAZO 4.5 GM PREMIX 100 ML IV SCH ×3 (04:28→18:38)
[2017-03-19] MEDS: SODIUM CHLOR 0.9% 1000 ML INJ 1,000 ML IV SCH ×2 (04:28→15:56)
[2017-03-19 07:18] LABS: AUTOMATED NEUTROPHIL # 7.3 TH/MM3 (1.8-7.7); BASOPHIL # 0.1 TH/MM3 (0-0.2); BASOPHIL % 0.6 % (0.0-2.0); EOSINOPHIL # 0.2 TH/MM3 (0-0.4); HEMO FLAGS DIFF FINAL; LYMPH % 15.1 % (9.0-44.0); LYMPHOCYTE # 1.5 TH/MM3 (1.0-4.8); MEAN CORPUSCULAR HGB CONC 33.4 % (32.0-36.0); NEUT % 73.3 % (16.0-70.0); PLATELET COUNT 970 TH/MM3 (150-450); RED BLOOD COUNT 3.33 MIL/MM3 (4.50-5.90); RED CELL DISTRIBUTION WIDTH 16.8 % (11.6-17.2)
[2017-03-19 07:45] LABS: ALT (GPT) 76 U/L (9-52); ANION GAP 9 MEQ/L (5-15); BLOOD UREA NITROGEN 6 MG/DL (7-18); CHLORIDE 107 MEQ/L (98-107); MAGNESIUM 2.3 MG/DL (1.5-2.5); POTASSIUM 3.1 MEQ/L (3.5-5.1); SODIUM (NA) 140 MEQ/L (136-145)
[2017-03-19 07:50] LABS: ALKALINE PHOSPHATASE 99 U/L (45-117); AST (GOT) 50 U/L (15-39); GLOMERULAR FILTRATION RATE 228 ML/MIN (>89)
[2017-03-19 08:00] VITALS: BP 136/75; PULSE 84; RESP 17; TEMP 98.8; O2SAT 100
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
[2017-03-19] MEDS ORDERED: BACLOFEN 10 MG TAB PO PRN (09:30)
[2017-03-19] MEDS ORDERED: PHARMACY ORDERED LAB ONE (09:45)
[2017-03-19] MEDS: AMOXICILLIN/CLAVULANATE K 500 MG TAB PO SCH (10:45)
[2017-03-19] MEDS: ARTIFICIAL TEARS OPTH SOLN 15 ML BTL EACH EYE SCH ×3 (10:45→18:38)
[2017-03-19] MEDS: ASPIRIN 325 MG TAB PO SCH (10:46)
[2017-03-19] MEDS: SODIUM CHLORIDE 0.9% FLUSH 10 ML FLUSH IV FLUSH SCH (10:46)
[2017-03-19] MEDS: LACTULOSE SYRUP 20 GM/30 ML CUP PO SCH (10:46)
[2017-03-19] MEDS: BACITRACIN TOP OINT 15 GM TUBE TOP SCH (10:46)
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
[2017-03-19] MEDS ORDERED: POTASSIUM CHLORIDE 10 MEQ CONTROLLED RELEASE TAB PO ONE (11:30)
[2017-03-19] MEDS: ENOXAPARIN SODIUM 40 MG/0.4 ML SYRINGE SQ SCH (11:59)
[2017-03-19 12:00] VITALS: BP 129/79; PULSE 82; RESP 17; TEMP 98.8; O2SAT 100
[2017-03-19] MEDS ORDERED: BISACODYL 10 MG SUPP RECTAL PRN (13:00)
[2017-03-19] MEDS ORDERED: BACL10TA PO (13:55)
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
[2017-03-19 16:00] VITALS: BP 129/76; PULSE 105; RESP 18; TEMP 98.5; O2SAT 99
[2017-03-22 06:50] LABS: ULNAR PULSE PRESENT
[2017-04-01] MEDS ORDERED: WHEEMIS3 (12:06)
[2017-04-03] MEDS ORDERED: shower tub chair (12:08)
[2017-04-04] MEDS ORDERED: PROP20TA3 PO (09:08)
[2017-04-04] MEDS ORDERED: traZODone PO (09:08)
[2017-04-04] MEDS ORDERED: SENN8.6T15 PO (09:08)
[2017-04-04] MEDS ORDERED: ACET1TAB86 PO (09:08)
[2017-04-04] MEDS ORDERED: LIDO2GEL11 TOPICAL (09:08)
[2017-04-04] MEDS ORDERED: GABA100C4 PO (09:08)
[2017-04-04] MEDS ORDERED: DOCU1CAP39 PO (09:08)
[2017-04-04] MEDS ORDERED: CYCL1TAB29 PO (09:08)
[2017-04-04] MEDS ORDERED: METHY5 PO (09:08)
[2017-04-04] MEDS ORDERED: HYDR-3580 PO (09:08)
[2017-04-04] MEDS ORDERED: APIX5TAB PO (09:11)
[2017-04-24] MEDS ORDERED: APIX5TAB (14:45)
[2017-04-24] MEDS ORDERED: TRAZ50TA12 (14:45)
[2017-04-24] MEDS ORDERED: PROP20TA3 (14:45)
[2017-04-24] MEDS ORDERED: CYCL1TAB29 (14:45)
[2017-04-24] MEDS ORDERED: LIDO2GEL11 (14:45)
[2017-04-24] MEDS ORDERED: METH5TAB7 (14:45)
[2017-04-24] MEDS ORDERED: ALPR0.5T3 (14:45)
[2017-04-24] MEDS ORDERED: HYDR-3516 (14:45)
[2017-04-24] MEDS ORDERED: GABA100C4 (14:45)
[2017-04-24] MEDS ORDERED: HYDR-4107 PO (16:04)
[2017-04-24] MEDS ORDERED: METHY5 PO (16:04)
== END 2017-03-19 20:35 | DRG 955 ==
LOC: NEPI 16:56 → NEDA 17:14 → MERGE 17:14 → EDBD 17:14 → N03B 17:35 → N05B 03-18 17:28
PROVIDERS: ADMIT Surgery; ATTEND Surgery
PROC: 5A1955Z Respiratory Ventilation, Greater than 96 Consecutive Hours (ICD-10-PCS; principal; 2017-03-06)
PROC: 009630Z Drainage of Cerebral Ventricle with Drainage Device, Percutaneous Approach (ICD-10-PCS; 2017-03-06)
PROC: 09Q1XZZ Repair Left External Ear, External Approach (ICD-10-PCS; 2017-03-06)
PROC: 03HY32Z Insertion of Monitoring Device into Upper Artery, Percutaneous Approach (ICD-10-PCS; 2017-03-07)
PROC: 4A133B1 Monitoring of Arterial Pressure, Peripheral, Percutaneous Approach (ICD-10-PCS; 2017-03-07)
PROC: 4A133J1 Monitoring of Arterial Pulse, Peripheral, Percutaneous Approach (ICD-10-PCS; 2017-03-07)
PROC: 05H533Z Insertion of Infusion Device into Right Subclavian Vein, Percutaneous Approach (ICD-10-PCS; 2017-03-07)
PROC: 30233N1 Transfusion of Nonautologous Red Blood Cells into Peripheral Vein, Percutaneous Approach (ICD-10-PCS; 2017-03-08)
PROC: 0PS3XZZ Reposition Cervical Vertebra, External Approach (ICD-10-PCS; 2017-03-11)
PROC: 2W60X0Z Traction of Head using Traction Apparatus (ICD-10-PCS; 2017-03-11)
DX: S06.6X0A Traumatic subarachnoid hemorrhage without loss of consciousness, initial encounter (principal); S27.321A Contusion of lung, unilateral, initial encounter; S12.500A Unspecified displaced fracture of sixth cervical vertebra, initial encounter for closed fracture; J96.01 Acute respiratory failure with hypoxia; G93.6 Cerebral edema; J69.0 Pneumonitis due to inhalation of food and vomit; S12.110A Anterior displaced Type II dens fracture, initial encounter for closed fracture; A41.9 Sepsis, unspecified organism; S22.039A Unspecified fracture of third thoracic vertebra, initial encounter for closed fracture; G93.40 Encephalopathy, unspecified; F02.81 Dementia in other diseases classified elsewhere, unspecified severity, with behavioral disturbance; I82.621 Acute embolism and thrombosis of deep veins of right upper extremity; B49 Unspecified mycosis; S22.059A Unspecified fracture of T5-T6 vertebra, initial encounter for closed fracture; S22.049A Unspecified fracture of fourth thoracic vertebra, initial encounter for closed fracture; F19.20 Other psychoactive substance dependence, uncomplicated; S06.360A Traumatic hemorrhage of cerebrum, unspecified, without loss of consciousness, initial encounter; R00.1 Bradycardia, unspecified; V29.9XXA Motorcycle rider (driver) (passenger) injured in unspecified traffic accident, initial encounter; Y92.488 Other paved roadways as the place of occurrence of the external cause; Y93.89 Activity, other specified; Y99.9 Unspecified external cause status; M51.26 Other intervertebral disc displacement, lumbar region; S80.812A Abrasion, left lower leg, initial encounter; S80.811A Abrasion, right lower leg, initial encounter; S40.812A Abrasion of left upper arm, initial encounter; S40.811A Abrasion of right upper arm, initial encounter; F31.9 Bipolar disorder, unspecified; F17.210 Nicotine dependence, cigarettes, uncomplicated; S01.312A Laceration without foreign body of left ear, initial encounter; F19.10 Other psychoactive substance abuse, uncomplicated; S20.312A Abrasion of left front wall of thorax, initial encounter; S20.311A Abrasion of right front wall of thorax, initial encounter; S90.02XA Contusion of left ankle, initial encounter; Z88.5 Allergy status to narcotic agent; M62.838 Other muscle spasm; I10 Essential (primary) hypertension
CPT/HCPCS: 36430; 36556; 36600; 61210; 70450; 70486; 70496; 71010; 71260; 72020; 72125; 72128; 72131; 72170; 73610; 74177; 76937; 80048; 80053; 80202; 80307; 81001; 82435; 82565; 82805; 82947; 82948; 83735; 83930; 84100; 84132; 84145; 84155; 84295; 84520; 85007; 85014; 85018; 85025; 85027; 85610; 85730; 86403; 86850; 86900; 86901; 86920; 87015; 87040; 87070; 87086; 87102; 87116; 87147; 87186; 87205; 87206; 87641; 90471; 93306; 93970; 94002; 94003; 94150; 94640; 94664; 94770; 96374; 96375; 99291; G0390; G0481; J0131; J0461; J0690; J0692; J0696; J1200; J1450; J1650; J1953; J1956; J2020; J2248; J2270; J2405; J2543; J2765; J3010; J3370; J3411; J3480; J7030; J7040; J7050; L0150; L0172; L0810; P9016; Q9967

== ENCOUNTER 2017-05-29 17:55 | Emergency (ER) | payer MEDICAID ==
[~2017-05-29] VITALS: Ht 167.6 cm; Wt 63.5 kg
[~2017-05-29 17:55] MED LIST changes: +ACET1TAB86 PO; +ALPR0.5T3 PO; +APIX5TAB; +APIX5TAB PO; +CYCL1TAB29; +CYCL1TAB29 PO; +DOCU1CAP39 PO; +DULO1CAP PO; +GABA100C4; +GABA100C4 PO; +HYDR-3516; +HYDR-3580 PO; +HYDR-4107 PO; +LIDO2GEL11; +LIDO2GEL11 TOPICAL; +METH5TAB7; +METHY5 PO; +PROP20TA3; +PROP20TA3 PO; +SENN8.6T15 PO; +TRAZ50TA12 PO; +WHEEMIS3; +shower tub chair; +traZODone PO
[2017-05-29 17:58] VITALS: BP 130/73; PULSE 74; RESP 20; TEMP 98.6; O2SAT 100
[2017-05-29 18:37] LABS: BACTERIA, URINE FEW /hpf; BLOOD, URINE LARGE (NEG); COMMENT (UR) CULTURE INDICATED; CULTURE IF INDICATED CULTURE INDICATED; GLUCOSE,URINE NEG (NEG); KETONE, URINE TRACE mg/dL (NEG); NITRITE,URINE NEG (NEG); PH, URINE 6.5 (5.0-8.5)
[2017-05-29 18:39] LABS: URINE COLOR RED (YELLW/STRAW)
[2017-05-29 19:52] VITALS: O2SAT 99
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
[2017-05-29] MEDS ORDERED: SODIUM CHLORIDE 0.9% FLUSH 10 ML FLUSH IV FLUSH PRN (20:00)
[2017-05-29 20:23] LABS: APTT (PATIENT) 33.5 SEC (24.3-30.1); PROTHROMBIN TIME - PATIENT 10.6 SEC (9.8-11.6)
[2017-05-29 20:25] LABS: AUTOMATED NEUTROPHIL # 5.6 TH/MM3 (1.8-7.7); BASOPHIL % 0.3 % (0.0-2.0); EOSINOPHIL # 0.1 TH/MM3 (0-0.4); EOSINOPHIL % 1.4 % (0.0-4.0); HEMO FLAGS DIFF FINAL; LYMPH % 28.1 % (9.0-44.0); LYMPHOCYTE # 2.5 TH/MM3 (1.0-4.8); MEAN CELL VOLUME 86.5 FL (80.0-100.0); MEAN CORPUSCULAR HEMOGLOBIN 29.9 PG (27.0-34.0); MEAN CORPUSCULAR HGB CONC 34.5 % (32.0-36.0); MONO % 7.7 % (0.0-8.0); NEUT % 62.5 % (16.0-70.0); PLATELET COUNT 443 TH/MM3 (150-450); RED BLOOD COUNT 4.86 MIL/MM3 (4.50-5.90); RED CELL DISTRIBUTION WIDTH 13.4 % (11.6-17.2); WHITE BLOOD COUNT 8.9 TH/MM3 (4.0-11.0)
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
[2017-05-29 20:31] LABS: BICARBONATE 30.2 MEQ/L (21.0-32.0); POTASSIUM 4.4 MEQ/L (3.5-5.1)
[2017-05-29] MEDS ORDERED: MIRA3350 PO (20:45)
[2017-05-29] MEDS ORDERED: PROP10TA6 PO (20:45)
[2017-05-29] MEDS ORDERED: HYDR-3533 PO (21:18)
[2017-05-29] MEDS ORDERED: TAMS5CAP PO (21:18)
== END 2017-05-29 23:18 | disposition home or self-care (01) ==
LOC: NEPD 17:55
DX: N20.0 Calculus of kidney (principal); N62 Hypertrophy of breast; F31.9 Bipolar disorder, unspecified; F41.9 Anxiety disorder, unspecified; K58.9 Irritable bowel syndrome, unspecified; R20.0 Anesthesia of skin; F17.220 Nicotine dependence, chewing tobacco, uncomplicated; Z86.718 Personal history of other venous thrombosis and embolism; Z79.899 Other long term (current) drug therapy
CPT/HCPCS: 74176; 80048; 81001; 85025; 85610; 85730; 87086

== ENCOUNTER 2017-12-09 22:45 | Observation (INO) | payer MEDICAID ==
[~2017-12-09] VITALS: Ht 167.6 cm; Wt 56.0 kg
[~2017-12-09 22:45] MED LIST changes: -ACET1TAB86 PO; +ACET325T15 PO; -ALPR0.5T3 PO; -APIX5TAB; -APIX5TAB PO; -ATOM60 PO; +CYCL10TA PO; -CYCL1TAB29; -CYCL1TAB29 PO; -DOCU1CAP39 PO; -DULO1CAP PO; -GABA100C4; -GABA100C4 PO; -HYDR-3516; -HYDR-3580 PO; -HYDR-4107 PO; -LIDO2GEL11; -LIDO2GEL11 TOPICAL; -METH5TAB7; -METHY5 PO; -PROP20TA3; -PROP20TA3 PO; -SENN8.6T15 PO; -TRAZ50TA12 PO; -WHEEMIS3; -shower tub chair; -traZODone PO
[2017-12-09 22:46] VITALS: BP 111/74; PULSE 60; RESP 16; TEMP 98.6; O2SAT 97
[2017-12-09 23:02] VITALS: BP 118/60; PULSE 54; RESP 14; TEMP 98.2; O2SAT 99
[2017-12-09] MEDS ORDERED: GABA100C4 PO (23:10)
[2017-12-09] MEDS ORDERED: IBUP200T47 PO (23:10)
[2017-12-09] MEDS ORDERED: TRAM50TA PO (23:10)
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
[2017-12-09 23:30] LABS: AUTOMATED NEUTROPHIL # 3.7 TH/MM3 (1.8-7.7); BASOPHIL # 0.1 TH/MM3 (0-0.2); BASOPHIL % 0.7 % (0.0-2.0); EOSINOPHIL # 0.1 TH/MM3 (0-0.4); EOSINOPHIL % 1.4 % (0.0-4.0); HEMATOCRIT 45.2 % (39.0-51.0); HEMOGLOBIN 16.2 GM/DL (13.0-17.0); LYMPH % 52.1 % (9.0-44.0); LYMPHOCYTE # 4.9 TH/MM3 (1.0-4.8); MEAN CELL VOLUME 86.7 FL (80.0-100.0); MEAN CORPUSCULAR HEMOGLOBIN 31.2 PG (27.0-34.0); MEAN CORPUSCULAR HGB CONC 35.9 % (32.0-36.0); MEAN PLATELET VOLUME 8.5 FL (7.0-11.0); MONO % 6.7 % (0.0-8.0); MONOCYTE # 0.6 TH/MM3 (0-0.9); NEUT % 39.1 % (16.0-70.0); PLATELET COUNT 385 TH/MM3 (150-450); RED BLOOD COUNT 5.21 MIL/MM3 (4.50-5.90); RED CELL DISTRIBUTION WIDTH 12.7 % (11.6-17.2); WHITE BLOOD COUNT 9.5 TH/MM3 (4.0-11.0)
--- NOTE | 2017-12-09 23:33 | RADRPT ---
EXAM DATE/TIME: 12/09/2017 23:16 [facility] COMPARISON: CT CERVICAL SPINE W/O CONTRAST, March 06, 2017, 17:23. INDICATIONS : Trauma. Fall. RADIATION DOSE: 32.34 CTDIvol (mGy) MEDICAL HISTORY : Brain injury SURGICAL HISTORY : Cervical fracture ENCOUNTER: Initial ACUITY: 1 day PAIN SCALE: Non-responsive LOCATION: neck TECHNIQUE: Volumetric scanning of the cervical spine was performed. Multiplanar reconstructions in the sagittal, coronal and oblique axial planes were performed. Using automated exposure control and adjustment o f the mA and/or kV according to patient size, radiation dose was kept as low as reasonably achievable to obtain optimal diagnostic quality images. DICOM format image data is available electronically f or review and comparison. FINDINGS: There is nonunion fracture through the base of the dens and 2 mm of separation anteriorly. There is n o aime-posterior displacement of the dens. No significant prevertebral soft tissue swelling. Previous spinous process fracture at C6 healed. No new fractures present. Normal alignment. No canal stenosis or discrete disc protrusions. CONCLUSION: 1. 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 No significant displacement. Healed spinous process fracture at C6. No acute fracture. Steve Trejo MD on December 09, 2017 at 23:28 Board Certified Radiologist. This report was verified electronically.
[2017-12-09 23:41] LABS: INTERNATIONAL NORMALIZED RATIO 1.1 RATIO; PROTHROMBIN TIME - PATIENT 11.2 SEC (9.8-11.6)
[2017-12-09] MEDS ORDERED: CYCLOBENZAPRINE HCL 10 MG TAB PO PRN (23:45)
[2017-12-09] MEDS ORDERED: ACETAMINOPHEN/HYDROcodone 325 MG/5 MG TAB PO PRN (23:45)
[2017-12-09] MEDS ORDERED: SODIUM CHLOR 0.9% 1000 ML INJ 1,000 ML IV ONE (23:45)
[2017-12-09] MEDS ORDERED: NALOXONE HCL 0.4 MG/ML AMP IV PUSH PRN (23:45)
[2017-12-09] MEDS ORDERED: ONDANSETRON HCL 4 MG/2 ML VIAL IV PUSH PRN (23:45)
[2017-12-09 23:46] LABS: CALCIUM 8.5 MG/DL (8.5-10.1); CREATININE 0.82 MG/DL (0.60-1.30)
--- NOTE | 2017-12-10 00:01 | HHI.HP ---
[facility] Primary Care Physician Reji Comer M.D. Past Family Social History Allergies: Coded Allergies: acetaminophen (Unverified Allergy, Intermediate, 12/09/17) oxycodone (Unverified Allergy, Intermediate, 12/09/17) Uncoded Allergies: Cefepime (Allergy, Intermediate, Rash, 05/14/17) Was on concomitant Vanco IV, Keppra which could have caused rash. Can be rechallenged under ID supervision in future. Physical Exam Vital Signs Vital Signs Date Time Temp Pulse Resp B/P (MAP) Pulse Ox O2 Delivery O2 Flow Rate FiO2 12/09/17 23:28 15 99 Room Air 12/09/17 23:02 98.2 54 14 118/60 (79) 99 12/09/17 22:46 98.6 60 16 111/74 (86) 97 Room Air Laboratory Laboratory Tests Test 12/09/17 23:23 White Blood Count 9.5 Red Blood Count 5.21 Hemoglobin 16.2 Hematocrit 45.2 Mean Corpuscular Volume 86.7 Mean Corpuscular Hemoglobin 31.2 Mean Corpuscular Hemoglobin Concent 35.9 Red Cell Distribution Width 12.7 Platelet Count 385 Mean Platelet Volume 8.5 Neutrophils (%) (Auto) 39.1 Lymphocytes (%) (Auto) 52.1 Monocytes (%) (Auto) 6.7 Eosinophils (%) (Auto) 1.4 Basophils (%) (Auto) 0.7 Neutrophils # (Auto) 3.7 Lymphocytes # (Auto) 4.9 Monocytes # (Auto) 0.6 Eosinophils # (Auto) 0.1 Basophils # (Auto) 0.1 CBC Comment DIFF FINAL Differential Comment Prothrombin Time 11.2 Prothromb Time International Ratio 1.1 Activated Partial Thromboplast Time 30.3 Blood Urea Nitrogen 7 Creatinine 0.82 Random Glucose 93 Calcium Level 8.5 Sodium Level 142 Potassium Level 3.5 Chloride Level 104 Carbon Dioxide Level 31.0 Anion Gap 7 Estimat Glomerular Filtration Rate 120 Ethyl Alcohol Level 276 Result Diagram: 12/09/17232212/09/17232[address] Head negatie acute changes cT C spine chronic non displaced C2 fracture Caprini VTE Risk Assessment Caprini VTE Risk Assessment: No/Low Risk (score <= 1) Caprini Risk Assessment Model Point Value = 1 Point Value = 2 Point Value = 3 Point Value = 5 Age 41-60 Minor surgery BMI > 25 kg/m2 Swollen legs Varicose veins or History of unexplained or recurrent spontaneous Oral contraceptives or hormone replacement Sepsis (< 1 month) Serious lung disease, including pneumonia (< 1 month) Abnormal pulmonary function Acute myocardial infarction Congestive heart failure (< 1 month) History of inflammatory bowel disease Medical patient at bed rest Age 61-74 Arthroscopic surgery Major open surgery (> 45 min) Laparoscopic surgery (> 45 min) Malignancy Confined to bed (> 72 hours) Immobilizing plaster cast Central venous access Age >= 75 History of VTE Family history of VTE Factor V Leiden Prothrombin [id number] Lupus anticoagulant Anticardiolipin antibodies Elevated serum homocysteine Heparin-induced thrombocytopenia Other congenital or acquired thrombophilia Stroke (< 1 month) Elective arthroplasty Hip, pelvis, or leg fracture Acute spinal cord injury (< 1 month) Prophylaxis Regimen Total Risk Factor Score Risk Level Prophylaxis Regimen 0-1 Low Early ambulation 2 Moderate Order ONE of the following: *Sequential Compression Device (SCD) *Heparin 5000 units SQ BID 3-4 Higher Order ONE of the following medications: *Heparin 5000 units SQ TID *Enoxaparin/Lovenox 40 mg SQ daily (WT < 150 kg, CrCl > 30 mL/min) *Enoxaparin/Lovenox 30 mg SQ daily (WT < 150 kg, CrCl > 10-29 mL/min) *Enoxaparin/Lovenox 30 mg SQ BID (WT < 150 kg, CrCl > 30 mL/min) AND/OR *Sequential Compression Device (SCD) 5 or more Highest Order ONE of the following medications: *Heparin 5000 units SQ TID (Preferred with Epidurals) *Enoxaparin/Lovenox 40 mg SQ daily (WT < 150 kg, CrCl > 30 mL/min) *Enoxaparin/Lovenox 30 mg SQ daily (WT < 150 kg, CrCl > 10-29 mL/min) *Enoxaparin/Lovenox 30 mg SQ BID (WT < 150 kg, CrCl > 30 mL/min) AND *Sequential Compression Device (SCD) Assessment and Plan Assessment and Plan Impression: !. Chronic nondisplaced C2 fractue 2, Etoh intoxication Plan: Discuused with ED Observation for Etoh intoxication. Will check cervical lateral flexion and extension x-ray and discuss C2 fracture treatment options with patient when not intoxicated No acute neurosurgical issues Brock Cooper MD Dec 10, 2017 00:01
[2017-12-10] MEDS: D5-NS + KCL 20 MEQ INJ 1,000 ML IV SCH ×2 (00:32→09:45)
[2017-12-10 00:39] VITALS: BP 124/81; PULSE 79; RESP 12; O2SAT 100
[2017-12-10] MEDS ORDERED: LORazepam 2 MG/ML VIAL IV PUSH PRN ×4 (00:45)
[2017-12-10] MEDS ORDERED: LORazepam 2 MG TAB PO PRN (00:45)
[2017-12-10] MEDS ORDERED: LORazepam 1 MG TAB PO PRN (00:45)
[2017-12-10] MEDS ORDERED: FLUMAZENIL 0.5 MG/5 ML VIAL IV PUSH PRN (00:45)
[2017-12-10 03:48] VITALS: BP 112/76; PULSE 57; RESP 18; TEMP 96.9; O2SAT 100
[2017-12-10 05:13] LABS: AUTOMATED NEUTROPHIL # 2.5 TH/MM3 (1.8-7.7); BASOPHIL % 0.5 % (0.0-2.0); EOSINOPHIL # 0.1 TH/MM3 (0-0.4); EOSINOPHIL % 1.3 % (0.0-4.0); HEMATOCRIT 44.9 % (39.0-51.0); HEMOGLOBIN 15.3 GM/DL (13.0-17.0); LYMPHOCYTE # 2.9 TH/MM3 (1.0-4.8); MEAN CELL VOLUME 88.7 FL (80.0-100.0); MEAN CORPUSCULAR HEMOGLOBIN 30.2 PG (27.0-34.0); MEAN PLATELET VOLUME 8.3 FL (7.0-11.0); MONO % 6.7 % (0.0-8.0); MONOCYTE # 0.4 TH/MM3 (0-0.9); NEUT % 42.5 % (16.0-70.0); PLATELET COUNT 318 TH/MM3 (150-450); RED BLOOD COUNT 5.06 MIL/MM3 (4.50-5.90); RED CELL DISTRIBUTION WIDTH 12.6 % (11.6-17.2); WHITE BLOOD COUNT 5.8 TH/MM3 (4.0-11.0)
[2017-12-10 05:37] LABS: CALCIUM 7.9 MG/DL (8.5-10.1); CREATININE 0.72 MG/DL (0.60-1.30)
[2017-12-10 08:00] VITALS: BP 119/66; PULSE 88; RESP 18; TEMP 98.2; O2SAT 100
[2017-12-10] MEDS ORDERED: DOCUSATE SODIUM 100 MG/10 ML UDC NG SCH (09:00)
[2017-12-10] MEDS ORDERED: PANTOPRAZOLE SOD 40 MG DELAYED RELEASE TAB PO SCH (09:00)
[2017-12-10] MEDS ORDERED: HYDR-3516 PO (09:26)
--- NOTE | 2017-12-10 09:59 | RADRPT ---
EXAM DATE/TIME: 12/10/2017 09:28 [facility] COMPARISON: CT CERVICAL SPINE W/O CONTRAST, December 09, 2017, 23:16. SPINE CERVICAL LTD (AP&LAT), March 26, 2017, 14:53. INDICATIONS : Neck pain after fall and C2 fracture. MEDICAL HISTORY : Brain injury. SURGICAL HISTORY : Cervical fracture. ENCOUNTER: Subsequent ACUITY: 2 days PAIN SCORE: 9/10 LOCATION: c-spine FINDINGS: Spinous process fractures have healed. Alignment of the vertebral bodies is normal with well-maintained intervertebral disc spaces. The nonunited fracture base of the odontoid is note d on this examination. Odontoid arch C1 distance is 3.2 mm in extension and flexion 4.0 mm. CONCLUSION: Nonunited fracture normally aligned at the base of the odontoid is appreciated. Odont oid arch of C1 distance varies with flexion-extension. In extension this is 3.2 mm in flexion this is 4.0 mm Fahad Franco MD on December 10, 2017 at 9:51 Board Certified Radiologist. This report was verified electronically.
[2017-12-10 12:00] VITALS: BP 114/66; PULSE 88; RESP 18; TEMP 98.4; O2SAT 98
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
--- NOTE | 2017-12-10 14:00 | HHI.DCPOC ---
Discharge Care Plan Diagnosis: (1) C2 cervical fracture (2) Alcohol intoxication Your Health Problems Are: Loss of Movements Goals to Promote Your Health * To prevent worsening of your condition and complications * To maintain your health at the optimal level Wear the cervical collar at all times. It may briefly be removed for personal hygiene. No twisting the neck, lifting, bending, pushing, pulling or other strenuous activity. Take the pain medication as prescribed. Avoid taking any medication that contains aspirin or NSAIDs (ibuprofen, naproxen , Motrin, Advil, Naprosyn). No smoking due to adverse effects on bone healing. Call [phone] to schedule a follow up with Dr Dumont to discuss treatment options. Directions to Meet Your Goals Take your medications as prescribed Follow your dietary instruction Follow activity as directed Wear the cervical collar at all times. It may briefly be removed for personal hygiene. No twisting the neck, lifting, bending, pushing, pulling or other strenuous activity. Take the pain medication as prescribed. Avoid taking any medication that contains aspirin or NSAIDs (ibuprofen, naproxen , Motrin, Advil, Naprosyn). No smoking due to adverse effects on bone healing. Call [phone] to schedule a follow up with Dr Dumont to discuss treatment options. Keep your appointments as scheduled Take your immunizations and boosters as scheduled If your symptoms worsen call your PCP, if no PCP go to Urgent Care Center or Emergency Room Smoking is Dangerous to Your Health. Avoid second hand smoke Call the 24-hour hour crisis hotline for domestic abuse at Nicolas Hinson Dec 10, 2017 14:00
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
== END 2017-12-10 18:10 | disposition home or self-care (01) ==
LOC: NEPC 22:45 → NEDA 12-10 00:44 → NEDH 12-10 04:56 → NEPGCP 12-10 13:06
PROVIDERS: ADMIT Neurological Surgery; ATTEND Neurological Surgery
DX: S12.100A Unspecified displaced fracture of second cervical vertebra, initial encounter for closed fracture (principal); F10.129 Alcohol abuse with intoxication, unspecified; Y90.8 Blood alcohol level of 240 mg/100 ml or more; W01.0XXA Fall on same level from slipping, tripping and stumbling without subsequent striking against object, initial encounter; S00.83XA Contusion of other part of head, initial encounter; R51 Headache
CPT/HCPCS: 70450; 72040; 72125; 80048; 80307; 83735; 85025; 85610; 85730; 86850; 86900; 86901; 94150; 96365; 99285; G0378; J3480; J7030

== ENCOUNTER 2018-03-29 14:46 | Emergency (ER) | payer MEDICAID ==
[~2018-03-29] VITALS: Ht 167.6 cm; Wt 56.0 kg
[~2018-03-29 14:46] MED LIST changes: -ACET325T15 PO; -CYCL10TA PO; +GABA100C4 PO; +HYDR-3516 PO; +IBUP200T47 PO; +TRAM50TA PO
[2018-03-29 14:54] VITALS: BP 130/76; PULSE 88; RESP 15; TEMP 97.2; O2SAT 99
[2018-03-29] MEDS ORDERED: SODIUM CHLOR 0.9% 1000 ML INJ 1,000 ML IV SCH (15:14)
[2018-03-29] MEDS ORDERED: SODIUM CHLORIDE 0.9% FLUSH 10 ML FLUSH IV FLUSH PRN (15:15)
[2018-03-29] MEDS ORDERED: ZOLO50TA PO (15:17)
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
[2018-03-29 15:27] VITALS: RESP 17; O2SAT 99
[2018-03-29 15:43] LABS: AUTOMATED NEUTROPHIL # 6.5 TH/MM3 (1.8-7.7); BASOPHIL % 0.3 % (0.0-2.0); EOSINOPHIL # 0.2 TH/MM3 (0-0.4); EOSINOPHIL % 1.7 % (0.0-4.0); HEMATOCRIT 41.1 % (39.0-51.0); HEMOGLOBIN 14.1 GM/DL (13.0-17.0); LYMPH % 21.3 % (9.0-44.0); MEAN CELL VOLUME 93.4 FL (80.0-100.0); MEAN CORPUSCULAR HEMOGLOBIN 32.1 PG (27.0-34.0); MEAN CORPUSCULAR HGB CONC 34.4 % (32.0-36.0); MEAN PLATELET VOLUME 8.3 FL (7.0-11.0); MONO % 7.2 % (0.0-8.0); MONOCYTE # 0.7 TH/MM3 (0-0.9); NEUT % 69.5 % (16.0-70.0); PLATELET COUNT 351 TH/MM3 (150-450); RED CELL DISTRIBUTION WIDTH 12.9 % (11.6-17.2); WHITE BLOOD COUNT 9.3 TH/MM3 (4.0-11.0)
[2018-03-29 15:52] LABS: PROTHROMBIN TIME - PATIENT 10.1 SEC (9.8-11.6)
[2018-03-29 16:00] LABS: AST (GOT) 32 U/L (15-37); BICARBONATE 32.8 MEQ/L (21.0-32.0); BLOOD UREA NITROGEN 7 MG/DL (7-18); CALCIUM 8.8 MG/DL (8.5-10.1); CHLORIDE 101 MEQ/L (98-107); CREATININE 0.79 MG/DL (0.60-1.30); GLOMERULAR FILTRATION RATE 124 ML/MIN (>89); GLUCOSE,RANDOM 85 MG/DL (74-106); SODIUM (NA) 138 MEQ/L (136-145)
[2018-03-29 16:01] LABS: ALT (GPT) 54 U/L (12-78)
[2018-03-29 16:03] LABS: ALKALINE PHOSPHATASE 55 U/L (45-117); TOTAL BILIRUBIN ADULT 0.3 MG/DL (0.2-1.0); TOTAL PROTEIN 7.3 GM/DL (6.4-8.2)
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
[2018-03-29 17:42] VITALS: BP 115/75; PULSE 50; RESP 15; TEMP 97.7; O2SAT 100
[2018-03-29 20:21] VITALS: BP 110/60; PULSE 73; RESP 18; O2SAT 99
--- NOTE | 2018-03-30 21:28 | EKG ---
Date Performed: 03/29/2018 Time Performed: 15:25:45 PTAGE: 23 years EKG: Sinus rhythm NORMAL ECG NO PREVIOUS TRACING DOCTOR: Avelino Magallanes Interpretating Date/Time 03/30/2018 21:27:38
== END 2018-03-29 20:33 | disposition home or self-care (01) ==
LOC: NEPE 14:46
DX: R55 Syncope and collapse (principal); Z87.820 Personal history of traumatic brain injury; Z79.01 Long term (current) use of anticoagulants; Z72.0 Tobacco use; Z79.899 Other long term (current) drug therapy
CPT/HCPCS: 70450; 80053; 80307; 82140; 85025; 85610; 85730; 93005; 96360; 99285; J7030

== ENCOUNTER 2018-03-31 22:28 | Emergency (ER) | payer MEDICAID ==
[~2018-03-31] VITALS: Ht 167.6 cm; Wt 60.0 kg
[~2018-03-31 22:28] MED LIST changes: -IBUP200T47 PO; -TRAM50TA PO; +ZOLO50TA PO
[2018-03-31 22:32] VITALS: BP 130/81; PULSE 88; RESP 14; TEMP 98; O2SAT 96
[2018-03-31] MEDS ORDERED: SODIUM CHLORID 0.9% 500 ML INJ 500 ML IV ONE (22:45)
[2018-03-31 22:46] VITALS: RESP 16; O2SAT 97
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
[2018-03-31 22:51] VITALS: BP 129/77; PULSE 76; RESP 18; O2SAT 97
[2018-03-31 23:07] LABS: AUTOMATED NEUTROPHIL # 10.5 TH/MM3 (1.8-7.7); BASOPHIL % 0.2 % (0.0-2.0); EOSINOPHIL % 0.2 % (0.0-4.0); HEMATOCRIT 41.7 % (39.0-51.0); LYMPH % 9.7 % (9.0-44.0); LYMPHOCYTE # 1.2 TH/MM3 (1.0-4.8); MEAN CELL VOLUME 92.7 FL (80.0-100.0); MEAN CORPUSCULAR HEMOGLOBIN 31.1 PG (27.0-34.0); MEAN CORPUSCULAR HGB CONC 33.5 % (32.0-36.0); MEAN PLATELET VOLUME 8.6 FL (7.0-11.0); MONOCYTE # 0.6 TH/MM3 (0-0.9); NEUT % 84.9 % (16.0-70.0); PLATELET COUNT 395 TH/MM3 (150-450); RED CELL DISTRIBUTION WIDTH 13.1 % (11.6-17.2); WHITE BLOOD COUNT 12.4 TH/MM3 (4.0-11.0)
[2018-03-31] MEDS ORDERED: NALO1SPR NASAL (23:08)
[2018-03-31 23:36] LABS: ACETAMINOPHEN LESS THAN 2.0 MCG/ML (10.0-30.0); ALKALINE PHOSPHATASE 58 U/L (45-117); ALT (GPT) 54 U/L (12-78); AST (GOT) 28 U/L (15-37); BLOOD UREA NITROGEN 7 MG/DL (7-18); CALCIUM 8.9 MG/DL (8.5-10.1); CHLORIDE 103 MEQ/L (98-107); CREATININE 0.92 MG/DL (0.60-1.30); GLOMERULAR FILTRATION RATE 104 ML/MIN (>89); GLUCOSE,RANDOM 139 MG/DL (74-106); SODIUM (NA) 140 MEQ/L (136-145); TOTAL BILIRUBIN ADULT 0.2 MG/DL (0.2-1.0); TOTAL PROTEIN 7.6 GM/DL (6.4-8.2)
[2018-03-31 23:46] VITALS: BP 119/62; PULSE 73; RESP 18; O2SAT 98
[2018-04-01 00:46] LABS: BILIRUBIN, URINE NEG (NEG); BLOOD, URINE TRACE (NEG); GLUCOSE,URINE NEG (NEG); KETONE, URINE NEG (NEG); NITRITE,URINE NEG (NEG); URINE COLOR YELLOW (YELLW/STRAW); URINE LEUKOCYTE ESTERASE NEG (NEG)
[2018-04-01 00:53] LABS: AMORPHOUS SEDIMENT, URINE RARE; HYALINE CAST, URINE 89 /lpf (RARE); MUCUS URINE MOD /lpf (OCC); SQUAMOUS EPITHELIAL CELL URINE <1 /hpf (0-5)
[2018-04-01] MEDS ORDERED: IBUPROFEN 400 MG TAB PO ONE (01:00)
[2018-04-01 03:40] VITALS: BP 124/68; PULSE 69; RESP 18; O2SAT 97
[2018-04-01 09:11] VITALS: BP 125/69
--- NOTE | 2018-04-01 16:50 | EKG ---
Date Performed: 03/31/2018 Time Performed: 22:35:57 PTAGE: 23 years EKG: Sinus rhythm NORMAL ECG PREVIOUS TRACING 03/29/18 @15.25.45 Since the previous tracing, no significant change noted DOCTOR: Quoc Pickard Interpretating Date/Time 04/01/2018 16:49:44
== END 2018-04-01 09:12 | disposition home or self-care (01) ==
LOC: NEPE 22:28 → NEPD 04-01 09:12
DX: T40.601A Poisoning by unspecified narcotics, accidental (unintentional), initial encounter (principal); M54.2 Cervicalgia; F12.90 Cannabis use, unspecified, uncomplicated; F17.200 Nicotine dependence, unspecified, uncomplicated; F31.9 Bipolar disorder, unspecified; Z79.899 Other long term (current) drug therapy
CPT/HCPCS: 80053; 80307; 81001; 85025; 93005; 96360; 99284; J7040